=== PATIENT | female | born 1940 | race Caucasian/White ===

== ENCOUNTER 2017-02-18 08:00 | Outpatient (CLI) | payer MEDICARE, OTHER ==
[2017-02-18 13:34] LABS: BASOPHILS % (AUTO) 0.8 %; EOSINOPHILS # (AUTO) 0.2 10^3/uL (0.0-0.7); EOSINOPHILS % (AUTO) 4.3 %; HCT - HEMATOCRIT 37.4 % (37.0-47.0); HGB - HEMOGLOBIN 12.5 g/dL (12.0-16.0); LYMPHOCYTES # (AUTO) 1.5 10^3/uL (1.5-3.5); LYMPHOCYTES % (AUTO) 26.8 %; MEAN CORPUSCULAR HEMOGLOBIN 31.6 pg (27.0-31.0); MEAN CORPUSCULAR HGB CONC 33.4 g/dL (32.0-36.0); MEAN CORPUSCULAR VOLUME 94.5 fL (81.0-99.0); MEAN PLATELET VOLUME 8.2 fL (7.9-10.8); MONOCYTES # (AUTO) 0.5 10^3/uL (0.0-1.0); MONOCYTES % (AUTO) 9.2 %; NEUTROPHILS # (AUTO) 3.4 10^3/uL (1.5-6.6); NEUTROPHILS % (AUTO) 58.9 %; NUCLEATED RED BLOOD CELLS AUTO 0.1 /100WBC; RED BLOOD COUNT 3.96 10^6/uL (4.20-5.40); RED CELL DISTRIBUTION WIDTH 14.1 % (12.0-15.0); UNCORRECTED WHITE BLOOD COUNT 5.7 x10^3/uL; WHITE BLOOD COUNT 5.7 x10^3/uL (4.8-10.8)
[2017-02-18 13:45] LABS: ALBUMIN/GLOBULIN RATIO 1.4 (1.0-2.2); BILIRUBIN,TOTAL 0.6 mg/dL (0.2-1.0); BUN - BLOOD UREA NITROGEN 26 mg/dL (6-20); CALCIUM 9.5 mg/dL (8.5-10.3); CARBON DIOXIDE - CO2 23 mmol/L (21-32); CHLORIDE 110 mmol/L (101-111); CHOLESTEROL 177 mg/dL; GFR - MDRD 54 (>89); GLUCOSE 92 mg/dL (70-100); HDL CHOLESTEROL 59 mg/dL; LDL/HDL RATIO 1.7 (<4.4); POTASSIUM 4.2 mmol/L (3.5-5.0); SODIUM 140 mmol/L (135-145); TRIGLYCERIDES 102 mg/dL; VLDL CHOLESTEROL 20 mg/dL
== END 2017-02-18 08:01 | disposition home or self-care (01) ==
LOC: LAB.WCP 08:00
PROVIDERS: ATTEND Physician Assistant Medical
DX: E78.5 Hyperlipidemia, unspecified (principal)
CPT/HCPCS: 36415; 80053; 80061; 85025

== ENCOUNTER 2017-04-01 10:05 | Outpatient (CLI) | payer MEDICARE, OTHER | END 2017-04-01 10:06 | disposition home or self-care (01) | DX: Z12.31 Encounter for screening mammogram for malignant neoplasm of breast (principal) ==

== ENCOUNTER 2018-02-02 08:40 | Outpatient (CLI) | payer MEDICARE, OTHER ==
[2018-02-02 12:43] LABS: BASOPHILS % (AUTO) 0.8 %; EOSINOPHILS # (AUTO) 0.3 10^3/uL (0.0-0.7); EOSINOPHILS % (AUTO) 4.9 %; HGB - HEMOGLOBIN 12.7 g/dL (12.0-16.0); LYMPHOCYTES # (AUTO) 1.2 10^3/uL (1.5-3.5); LYMPHOCYTES % (AUTO) 23.4 %; MEAN CORPUSCULAR HEMOGLOBIN 31.6 pg (27.0-31.0); MEAN CORPUSCULAR HGB CONC 33.2 g/dL (32.0-36.0); MEAN CORPUSCULAR VOLUME 94.9 fL (81.0-99.0); MEAN PLATELET VOLUME 8.1 fL (7.9-10.8); MONOCYTES # (AUTO) 0.4 10^3/uL (0.0-1.0); MONOCYTES % (AUTO) 7.8 %; NEUTROPHILS # (AUTO) 3.4 10^3/uL (1.5-6.6); NEUTROPHILS % (AUTO) 63.1 %; PLT - PLATELET COUNT 243 10^3/uL (130-450); RED BLOOD COUNT 4.03 10^6/uL (4.20-5.40); WHITE BLOOD COUNT 5.3 x10^3/uL (4.8-10.8)
[2018-02-02 13:04] LABS: ALBUMIN/GLOBULIN RATIO 1.4 (1.0-2.2); ALKALINE PHOSPHATASE 57 IU/L (42-121); ALT ALANINE AMINOTRANSFERASE 20 IU/L (10-60); AST ASPARTATE AMINOTRANSFERASE 22 IU/L (10-42); BILIRUBIN,TOTAL 0.7 mg/dL (0.2-1.0); BUN - BLOOD UREA NITROGEN 26 mg/dL (6-20); CALCIUM 9.1 mg/dL (8.5-10.3); CARBON DIOXIDE - CO2 24 mmol/L (21-32); CHLORIDE 107 mmol/L (101-111); CHOL/HDL RATIO 3.3 (<4.4); CHOLESTEROL 177 mg/dL; CREATININE 0.9 mg/dL (0.4-1.0); GFR - MDRD 61 (>89); GLUCOSE 90 mg/dL (70-100); HDL CHOLESTEROL 53 mg/dL; LDL CHOLESTEROL,CALCULATED 105 mg/dL; SODIUM 137 mmol/L (135-145); TOTAL PROTEIN 6.9 g/dL (6.7-8.2); VLDL CHOLESTEROL 19 mg/dL
== END 2018-02-02 08:41 | disposition home or self-care (01) ==
LOC: LAB.WCP 08:40
PROVIDERS: ATTEND Physician Assistant Medical
DX: E78.5 Hyperlipidemia, unspecified (principal); K21.9 Gastro-esophageal reflux disease without esophagitis
CPT/HCPCS: 36415; 80053; 80061; 83721; 85025

== ENCOUNTER 2018-04-15 08:13 | Inpatient (IN) | payer MEDICARE, OTHER ==
--- NOTE | 2018-04-15 08:45 | ED Physician Documentation ---
History of Present Illness - Stated complaint Stated Complaint: NAUSEA/WEAKNESS - Chief complaint Chief Complaint: Abd Pain - Additonal information Additional information: hx from pt and PMD 77 f healthy no prior abd surgeries ill since March 31 she thought she might have food poisoning because she got ill after eating brisket from [employer] had NVD for several days that has subsided but still having sig abd pain, severe nausea, dec PO and occ diarrhea now with urinary freq as well seen PMD few tmes, rx zofran which helped but also caused constipation, has labs yesterday Review of Systems Constitutional: denies: Fever, Chills Cardiac: denies: Chest pain / pressure Respiratory: denies: Dyspnea GI: reports: Abdominal Pain, Nausea, Vomiting, Diarrhea : denies: Dysuria Neurologic: denies: Generalized weakness Endocrine: denies: Easy bruising / bleeding Immunocompromised: denies: Immunocompromised PD PAST MEDICAL HISTORY - Past Medical History Cardiovascular: Hypertension Musculoskeletal: Scoliosis - Past Surgical History Past Surgical History: Yes General: Colonoscopy HEENT: Cataracts, Tonsil/Adenoidectomy - Present Medications Home Medications: Ambulatory Orders Medication Instructions Recorded Confirmed Atorvastatin [Lipitor] 20 mg PO DAILY 02/15/16 02/18/16 Losartan [Cozaar] 100 mg PO DAILY 02/15/16 02/18/16 Betaxolol 0.25% Ophth Drops 1 drops OPTH BID 02/18/16 02/18/16 [Betoptic S 0.25% Ophth Drops] Biotin 1,000 mcg PO DAILY 02/18/16 02/18/16 Ca/D3/Mag#11/Zinc/[employer]/Zachariah/Bor 1 each PO BID 02/18/16 02/18/16 [Caltrate 600+D Plus Tablet] Cholecalciferol (Vitamin D3) 1,000 unit PO 02/18/16 [Vitamin D3] Dorzolamide 2% Ophth Drops 1 drops OPTH TID 02/18/16 02/18/16 [Trusopt 2% Ophth Drops] Fluticasone Propionate [Flovent 1 spray NS BID 02/18/16 02/18/16 Diskus] Ibuprofen 400 mg PO Q6HR PRN 02/18/16 02/18/16 Multivitamin [Theragran] 1 each PO DAILY 02/18/16 02/18/16 Ubidecarenone/Vitamin E Mixed 1 each PO DAILY 02/18/16 02/18/16 [Jxu87-Avb E 100 mg-10 Unit Sfg] - Allergies Allergies/Adverse Reactions: Allergies Allergy/AdvReac Type Severity Reaction Status Date / Time oxycodone HCl * Allergy Hallucinati Verified 04/15/18 08:22 [From OxyContin] ons brimonidine tartrate * AdvReac Unknown Verified 04/15/18 08:22 [From Alphagan P] lisinopril AdvReac Unknown Verified 04/15/18 08:22 timolol [Timolol] AdvReac Unknown Verified 04/15/18 08:22 - Social History Does the pt smoke?: No Smoking Status: Never smoker Does the pt drink ETOH?: Yes Does the pt have substance abuse?: No - Immunizations Immunizations are current?: Yes - POLST Patient has POLST: No PD ED PE NORMAL - Vitals Vital signs reviewed: Yes - Neck Neck: Supple, no meningeal sign - Cardiac Cardiac: RRR - Respiratory Respiratory: No respiratory distress, Clear bilaterally - Abdomen Abdomen: Soft, Other (mod TTP across lower abd, mild distension, no rebound, + guarding) - Derm Derm: Normal color - Neuro Neuro: Alert and oriented X 3 Results - Vitals Vitals: Vital Signs - 24 hr 04/15/18 04/15/18 04/15/18 08:17 10:04 11:33 Temperature 36.8 C 36.6 C Heart Rate 116 H 87 96 Respiratory 16 16 16 Rate Blood Pressure 123/62 131/57 H 130/54 L O2 Saturation 98 98 99 04/15/18 04/15/18 04/15/18 13:51 15:48 17:43 Temperature 36.2 C L 38.0 C H Heart Rate 92 89 95 Respiratory 15 18 15 Rate Blood Pressure 112/60 128/59 L 135/50 H O2 Saturation 100 98 100 Oxygen O2 Source Room air - Labs Labs: Laboratory Tests 04/15/18 04/15/18 04/15/18 08:44 08:44 09:22 WBC 18.0 H RBC 3.80 L Hgb 12.0 Hct 36.0 L MCV 94.6 MCH 31.5 H MCHC 33.2 RDW 13.7 Plt Count 557 H MPV 8.4 Neut # (Auto) Not Reportable Lymph # (Auto) Not Reportable Weber # (Auto) Not Reportable Eos # (Auto) Not Reportable Baso # (Auto) Not Reportable Absolute Nucleated RBC Not Reportable Total Counted 100 Band Neuts % (Manual) 39 H Abnorm Lymph % (Manual) 0 Metamyelocytes % 1 H Nucleated RBC % Not Reportable Neutrophils # (Manual) 15.7 H Lymphocytes # (Manual) 0.5 L Monocytes # (Manual) 1.6 H Eosinophils # (Manual) 0.0 Basophils # (Manual) 0.0 Differential Comment MANUAL DIFFERENTIAL WBC Morphology Platelet Estimate NORMAL (130-450,000) Platelet Morphology NORMAL APPEARANCE RBC Morph Micro Appear NORMAL APPEARANCE Sodium 135 Potassium 3.4 L Chloride 102 Carbon Dioxide 22 Anion Gap 11.0 BUN 17 Creatinine 1.2 H Estimated GFR (MDRD) 43 L Glucose 129 H Lactic Acid Calcium 9.5 Total Bilirubin 0.8 AST 22 ALT 28 Alkaline Phosphatase 75 Total Protein 7.3 Albumin 3.2 Globulin 4.1 Albumin/Globulin Ratio 0.8 L Lipase 27 Urine Color YELLOW Urine Clarity CLEAR Urine pH 5.5 Ur Specific Leland <=1.005 Urine Protein NEGATIVE Urine Glucose (UA) NEGATIVE Urine Ketones NEGATIVE Urine Occult Blood NEGATIVE Urine Nitrite NEGATIVE Urine Bilirubin NEGATIVE Urine Urobilinogen 0.2 (NORMAL) Ur Leukocyte Esterase NEGATIVE Ur Microscopic Review NOT INDICATED Urine Culture Comments NOT INDICATED 04/15/18 04/15/18 11:08 17:00 WBC 14.9 H RBC 3.49 L Hgb 11.0 L Hct 32.6 L MCV 93.3 MCH 31.5 H MCHC 33.8 RDW 13.6 Plt Count 534 H MPV 7.8 L Neut # (Auto) MEDICAL ASSISTANT CARDIOLOGY Lymph # (Auto) MEDICAL ASSISTANT CARDIOLOGY Weber # (Auto) MEDICAL ASSISTANT CARDIOLOGY Eos # (Auto) MEDICAL ASSISTANT CARDIOLOGY Baso # (Auto) MEDICAL ASSISTANT CARDIOLOGY Absolute Nucleated RBC MEDICAL ASSISTANT CARDIOLOGY Total Counted 100 Band Neuts % (Manual) 36 H Abnorm Lymph % (Manual) 0 Metamyelocytes % Nucleated RBC % MEDICAL ASSISTANT CARDIOLOGY Neutrophils # (Manual) 13.0 H Lymphocytes # (Manual) 1.0 L Monocytes # (Manual) 0.9 Eosinophils # (Manual) 0.0 Basophils # (Manual) 0.0 Differential Comment MANUAL DIFFERENTIAL WBC Morphology 1+ DOHLE BODIES Platelet Estimate INCREASED (>450,000) Platelet Morphology NORMAL APPEARANCE RBC Morph Micro Appear NORMAL APPEARANCE Sodium Potassium Chloride Carbon Dioxide Anion Gap BUN Creatinine Estimated GFR (MDRD) Glucose Lactic Acid 1.3 Calcium Total Bilirubin AST ALT Alkaline Phosphatase Total Protein Albumin Globulin Albumin/Globulin Ratio Lipase Urine Color Urine Clarity Urine pH Ur Specific Leland Urine Protein Urine Glucose (UA) Urine Ketones Urine Occult Blood Urine Nitrite Urine Bilirubin Urine Urobilinogen Ur Leukocyte Esterase Ur Microscopic Review Urine Culture Comments - Rads (name of study) abd sono Radiology: See rad report (BD sludge no acute susana) CT AP Radiology: See rad report (stool retention, distended bladder and hydro, gallstones, HH, diverticulosis s -itis) PD MEDICAL DECISION MAKING - ED course ED course: DREA Tenorio called - pt had labs through [facility] yesterday -WBC 16.7, creat 1.5 ( not new), nl lipase and LFTs - PMD was going to get a CT scan abn GB on CT and WBC 18 with 39% bands but not focal RUQ TTP gave zosyn after lactate and blood cx ordered sono (sludge only) magana for diustended bladder and enema for stool retention with resultant BP req surgical consult at [address] Addison came to ED to see pt between OR cases but she was in sono pt is elderly tachycardic leukocytosis with a sig bandemia - if surgery does not feel she has a surgival abd, will req medicine to obs her as I believe there is a significant underlying infection somewhere after magana to drain bladder and enema with resultant large BM pt feeling much better when surgery returned to eval pt at 1625 her HR was normal and her abd was soft and non tender without pain meds (she refused the morphine) - Dr Addison does not feel pt needs surgery he feels she can be dced home I am concerned about the WBC 18K and 39% bands and wanted to at least admit to obs pt wants t go home we discussed and agreed to repeat the CBC - if WBC and band improved may consider dc with very close fup - I am not working tomorrow but Dr Addison is medicare contact specialist so pt could come to the ER and he could consult again or to his office for a 24 hr recheck - only if CBC improved CBC not sig improved, still 36% bands - and now pt febrile non surgical at this time (see Dr Addison' note) but d/w hospitalist at 1815 and she will admit pt for further observation and evaluation to see how symptoms progress and declare - Sepsis Event Vital Signs: Vital Signs - 24 hr 04/15/18 04/15/18 04/15/18 08:17 10:04 11:33 Temperature 36.8 C 36.6 C Heart Rate 116 H 87 96 Respiratory 16 16 16 Rate Blood Pressure 123/62 131/57 H 130/54 L O2 Saturation 98 98 99 04/15/18 04/15/18 04/15/18 13:51 15:48 17:43 Temperature 36.2 C L 38.0 C H Heart Rate 92 89 95 Respiratory 15 18 15 Rate Blood Pressure 112/60 128/59 L 135/50 H O2 Saturation 100 98 100 Oxygen O2 Source Room air Departure - Departure Disposition: [facility] DC/Xfer Clinical Impression: Bandemia Leukocytosis Qualifiers: Leukocytosis type: bandemia Qualified Code(s): D72.825 - Bandemia Abdominal pain Qualifiers: Abdominal location: lower abdomen, unspecified Qualified Code(s): R10.30 - Lower abdominal pain, unspecified Fever Qualifiers: Fever type: unspecified Qualified Code(s): R50.9 - Fever, unspecified Condition: Fair
[2018-04-15 09:11] LABS: BASOPHILS % (AUTO) 0.4 %; EOSINOPHILS % (AUTO) 0.7 %; LYMPHOCYTES % (AUTO) 3.2 %; MEAN CORPUSCULAR HEMOGLOBIN 31.5 pg (27.0-31.0); MEAN CORPUSCULAR HGB CONC 33.2 g/dL (32.0-36.0); MEAN CORPUSCULAR VOLUME 94.6 fL (81.0-99.0); MEAN PLATELET VOLUME 8.4 fL (7.9-10.8); MONOCYTES % (AUTO) 8.1 %; NEUTROPHILS % (AUTO) 87.6 %; PLT - PLATELET COUNT 557 10^3/uL (130-450); RED CELL DISTRIBUTION WIDTH 13.7 % (12.0-15.0)
[2018-04-15 09:12] LABS: ABNORMAL LYMPHS % (MANUAL) 0 %
[2018-04-15 09:32] LABS: ALBUMIN 3.2 g/dL (3.2-5.5); ALBUMIN/GLOBULIN RATIO 0.8 (1.0-2.2); BILIRUBIN,TOTAL 0.8 mg/dL (0.2-1.0); CALCIUM 9.5 mg/dL (8.5-10.3); CREATININE 1.2 mg/dL (0.4-1.0); TOTAL PROTEIN 7.3 g/dL (6.7-8.2)
[2018-04-15 09:34] LABS: BAND NEUTROPHILS % (MANUAL) 39 %; LYMPHOCYTES # (MANUAL) 0.5 10^3/uL (1.5-3.5); LYMPHOCYTES % (MANUAL) 3 %; METAMYELOCYTES % (MANUAL) 1 %; MONOCYTES # (MANUAL) 1.6 10^3/uL (0.0-1.0); NEUTROPHILS # (MANUAL) 15.7 10^3/uL (1.5-6.6); NEUTROPHILS % (MANUAL) 48 %
[2018-04-15 09:35] LABS: DIFFERENTIAL COMMENT MANUAL DIFFERENTIAL; PLATELET ESTIMATE, MANUAL NORMAL (130-450,000) (NORMAL); PLATELET MORPHOLOGY NORMAL APPEARANCE (NORMAL); RBC MORPHOLOGY (MULTIPLE) NORMAL APPEARANCE (NORMAL)
[2018-04-15 09:53] LABS: BILIRUBIN,URINE NEGATIVE (NEGATIVE); GLUCOSE, URINE (UA) NEGATIVE (NEGATIVE); KETONES,URINE (UA) NEGATIVE (NEGATIVE); LEUKOCYTE ESTERASE, URINE NEGATIVE (NEGATIVE); NITRITE,URINE NEGATIVE (NEGATIVE); OCCULT BLOOD,URINE NEGATIVE (NEGATIVE); PH,URINE 5.5 PH (5.0-7.5); PROTEIN,URINE NEGATIVE (NEGATIVE); UROBILINOGEN,URINE 0.2 (NORMAL) E.U./dL (NORMAL)
[2018-04-15 09:57] LABS: CLARITY,URINE CLEAR (CLEAR)
--- NOTE | 2018-04-15 10:35 | CT Report ---
Procedure Date: 04/15/2018 Accession Number: [id number] / [id number] Procedure: CT - Abdomen/Pelvis W/O CPT Code: FULL RESULT: EXAM: CT ABDOMEN AND PELVIS EXAM DATE: 04/15/2018 09:36 AM. CLINICAL HISTORY: Abd pain. COMPARISONS: None. TECHNIQUE: Routine helical CT imaging was performed through the abdomen and pelvis. IV contrast: None. Enteric contrast: No. Reconstructions: Coronal and sagittal. In accordance with CT protocol optimization, one or more of the following dose reduction techniques were utilized for this exam: automated exposure control, adjustment of mA and/or KV based on patient size, or use of iterative reconstructive technique. FINDINGS: Lung Bases: Moderate size hiatal hernia Liver: Normal. No masses. Gallbladder/Bile Ducts: Possible gallstones Spleen: Normal. 8 mm calcified splenic artery aneurysm Pancreas: Normal. Adrenal Glands: Normal. Kidneys: Mild bilateral hydronephrosis. Bladder is distended. Peritoneal Cavity/Bowel: Diverticulosis. No significant free fluid in the abdomen. No retroperitoneal adenopathy Markedly distended fecal filled rectum. Normal appendix. Pelvic Organs: Bladder is distended. Pelvic organs otherwise unremarkable. Vasculature: No aneurysms or other significant abnormality. Bones: Scoliosis, multilevel spondylolisthesis, congenital or postsurgical fusion Other: None. IMPRESSION: 1. Possible cholelithiasis. 2. Mild bilateral hydroureteronephrosis. Bladder is markedly distended 3. Fecal filled dilated rectum possible impaction. 4. Diverticulosis. 5. Moderate-sized hiatal hernia RADIA
[2018-04-15] MEDS ORDERED: PIPERACILLIN/TAZOBACTAM 3.375 GM in SODIUM CHLORIDE 0.9% MINIBAG 100 ML IV STA (10:51)
[2018-04-15] MEDS ORDERED: MORPHINE 2 MG/ML SYRINGE IVP STA (11:23)
--- NOTE | 2018-04-15 13:23 | Ultrasound Report ---
Procedure Date: 04/15/2018 Accession Number: [id number] / [id number] Procedure: US - Abdomen Limited CPT Code: FULL RESULT: EXAM: Abdomen Limited DATE: 04/15/2018 1:14 PM CLINICAL HISTORY: abd pain abn GB on CT COMPARISON: None. TECHNIQUE: Real-time scanning was performed with static images obtained. FINDINGS: Liver: Normal in size and echotexture. cm. Main portal vein flow: Hepatopetal. Gallbladder: The gallbladder contains sludge but demonstrates normal wall thickness and no pericholecystic fluid and no gallbladder wall hyperemia to suggest cholecystitis. While the patient did receive pain medication which precludes formal evaluation of the sonographic Mendieta's sign, no tenderness was appreciated over the gallbladder. Biliary System: Common bile duct measures 4 mm. No intrahepatic or extrahepatic ductal dilatation. Pancreas: Visualized portion is unremarkable. Kidneys: Right: 9.5 cm longitudinally. Normal. No contour-deforming mass, stones, or hydronephrosis. IMPRESSION: Gallbladder sludge without sonographic findings to suggest cholecystitis. RADIA
[2018-04-15 17:04] LABS: BASOPHILS % (AUTO) 0.3 %; LYMPHOCYTES % (AUTO) 4.7 %; MEAN CORPUSCULAR HEMOGLOBIN 31.5 pg (27.0-31.0); MEAN CORPUSCULAR HGB CONC 33.8 g/dL (32.0-36.0); MEAN CORPUSCULAR VOLUME 93.3 fL (81.0-99.0); MEAN PLATELET VOLUME 7.8 fL (7.9-10.8); MONOCYTES % (AUTO) 8.6 %; NEUTROPHILS % (AUTO) 86.4 %; PLT - PLATELET COUNT 534 10^3/uL (130-450); RED BLOOD COUNT 3.49 10^6/uL (4.20-5.40); RED CELL DISTRIBUTION WIDTH 13.6 % (12.0-15.0); WHITE BLOOD COUNT 14.9 x10^3/uL (4.8-10.8)
[2018-04-15 17:42] LABS: ABNORMAL LYMPHS % (MANUAL) 0 %
[2018-04-15 18:00] LABS: BAND NEUTROPHILS % (MANUAL) 36 %; DIFFERENTIAL COMMENT MANUAL DIFFERENTIAL; LYMPHOCYTES % (MANUAL) 7 %; MONOCYTES # (MANUAL) 0.9 10^3/uL (0.0-1.0); NEUTROPHILS % (MANUAL) 51 %; PLATELET ESTIMATE, MANUAL INCREASED (>450,000) (NORMAL); PLATELET MORPHOLOGY NORMAL APPEARANCE (NORMAL); RBC MORPHOLOGY (MULTIPLE) NORMAL APPEARANCE (NORMAL)
[2018-04-15] MEDS ORDERED: ACETAMINOPHEN 325 MG TABLET PO STA (18:27)
[2018-04-15] MEDS ORDERED: SODIUM CHLORIDE FLUSH 0.9% 10 ML SYRINGE IVP PRN (18:41)
--- NOTE | 2018-04-15 20:37 | HISTORY & PHYSICAL EXAMINATION ---
Chief Complaint - Chief Complaint Chief Complaint: Abdominal pain History of Present Illness - Admitted From Admitted From:: Home - History Obtained From History obtained from: Patient - History of Present Illness HPI Comment/Other: Mrs. Zoey Middleton is a very pleasant 77-year-old female who has a history of having eaten "bad food" on March 31 which left her with nausea and vomiting for 4 days. Following this the patient had diarrhea for several days. She went to see her primary care physician provider and was placed on clear liquid diet which was advanced to a brat diet however the patient continued to have abdominal discomfort. She has had anorexia with decreased oral intake of both food and fluids since that time has had multiple episodes of severe colicky abdominal pain which has come and gone. Today the pain came back and the patient decided to come to the emergency room rather than following up with her primary care as she has already seen her primary care a couple of times for these complaints. CAT scan of the abdomen was essentially negative as was an ultrasound however it was noted that the patient had a large amount of fluid in her bladder and a large amount of stool. She had a Faith catheter placed and an enema in which a large amount of stool was evacuated and the patient says she feels much better since that time. She denies any pain or any other new complaints. History - Past Medical History Cardiovascular: reports: Hypertension, High cholesterol HEENT: reports: Glaucoma Musculoskeletal: reports: Scoliosis - Past Surgical History General: reports: Colonoscopy /BOX STAMPER: reports: Other (Uterine surgery) Neuro: reports: Other (Lumbar laminectomy) HEENT: reports: Cataracts, Tonsil/Adenoidectomy - Family & Social History Family History: Mother: , Father: , COPD/Emphysema, Brother: Alive and Well, CAD Family History Comment/Other: Patient's mother at age 92 of natural causes. Patient's father at age 86 with complications of emphysema. There is a brother who has coronary artery disease. There is no known history of CVA, diabetes mellitus, or cancer in the family. Living arrangement: At home Living Situation: With spouse/s.o. - Substance History Use: Uses substance without health or social issues: Alcohol Abuse: Recurrent use of substance despite neg consequences: NONE Dependence: Experiences withdrawal or developed tolerances: NONE - POLST Patient has POLST: No POLST Status: Full Code Meds/Allgy - Home Medications Home Medications: Ambulatory Orders Medication Instructions Recorded Confirmed Atorvastatin [Lipitor] 20 mg PO QPM 02/15/16 04/15/18 Losartan [Cozaar] 100 mg PO DAILY 02/15/16 04/15/18 Betaxolol 0.25% Ophth Drops 1 drops EACHEYE BID 02/18/16 04/15/18 [Betoptic S 0.25% Ophth Drops] Brinzolamide 1% Ophth Drops [Azopt 1 drops RIGHTEYE BID 04/15/18 04/15/18 1% Ophth Drops] - Allergies Allergies/Adverse Reactions: Allergies Allergy/AdvReac Type Severity Reaction Status Date / Time oxycodone HCl * Allergy Hallucinati Verified 04/15/18 08:22 [From OxyContin] ons brimonidine tartrate * AdvReac Unknown Verified 04/15/18 08:22 [From Alphagan P] lisinopril AdvReac Unknown Verified 04/15/18 08:22 timolol [Timolol] AdvReac Unknown Verified 04/15/18 08:22 Review of Systems - Constitutional Constitutional: denies: Fatigue, Fever, Chills, Malaise - Eyes Eyes: denies: Pain, Irritation, Amaurosis, Blurred vision - Ears, Nose & Throat Ears, Nose & Throat: denies: Ear pain, Hearing loss, Tinnitus, Vertigo, Nasal pain, Nosebleeds - Cardiovascular Cariovascular: denies: Irregular heart rate, Palpitations, Chest pain, Edema - Respiratory Respiratory: denies: Cough, Sputum production, Wheezing, Snoring - Gastrointestinal Gastrointestinal: reports: Abdominal pain, Abdominal distention, Diarrhea, Change in bowel habits, Nausea. denies: Constipation, Rectal bleeding, Black stools, Bloody stools, Vomiting - Genitourinary Genitourinary: denies: Dysuria, Frequency, Urgency, Hematuria - Musculoskeletal Musculoskeletal: denies: Muscle pain, Back pain, Muscle aches, Stiffness - Integumentary Integumentary: denies: Rash, Pruritis, Lesions, Dryness - Neurological Neurological: denies: General weakness, Focal weakness, Headache, Dizziness - Psychiatric Psychiatric: denies: Depression, Anxiety, Suicidal, Hallucinations - Endocrine Endocrine: denies: Polyuria, Polydypsia, Polyphagia - Hematologic/Lymphatic Hematologic/Lymphatic: denies: Anemia, Bruising, Petechiae, Lymphadenopathy - All Other Systems All Other Systems: reports: Reviewed and negative Exam - Vital Signs Reviewed Vital Signs: Yes Vital Signs: Vital Signs x48h Temp Pulse Resp BP Pulse Ox 04/15/18 19:25 37.2 C 96 18 128/56 L 100 - Physical Exam General Appearance: positive: No acute distress, Alert Eyes Bilateral: positive: Normal inspection, PERRL, EOMI, No lid inflammation, Conjunctivae nml, No scleral icterus ENT: positive: ENT inspection nml, Pharynx nml, No signs of dehydration Neck: positive: Nml inspection, Thyroid nml, No JVD, Trachea midline. negative : Thyromegaly Respiratory: positive: Chest non-tender, No respiratory distress, Breath sounds nml. negative: Wheezes, Rales, Rhonchi Cardiovascular: positive: Regular rate & rhythm, No murmur, No gallop Peripheral Pulses: positive: 1+ Abdomen: positive: Non-tender, No organomegaly, Nml bowel sounds, No distention. negative: Guarding, Rebound Back: positive: Nml inspection. negative: CVA tenderness (R), CVA tenderness (L ) Skin: positive: Color nml, No rash, Warm, Dry. negative: Cyanosis Extremities: positive: Non-tender, Full ROM, Nml appearance, No pedal edema Neurologic/Psychiatric: positive: Oriented x3, CN's nml (2-12), Motor nml, Sensation nml, Mood/affect nml Conclusion/Plan - Problem List (1) Abdominal pain Conclusion/Plan: At this time the patient's abdominal pain is resolved, and has been since she had her enema and Faith catheter placed. The Faith catheter has since been removed and the patient is voiding. Her abdomen is soft, nontender, she is not exhibiting any rebounding or guarding. Will monitor her overnight and if she remains comfortable we will discharge her tomorrow. Qualifiers: Abdominal location: lower abdomen, unspecified Qualified Code(s): R10.30 - Lower abdominal pain, unspecified (2) Hypertension Conclusion/Plan: Well-managed, the patient's diastolics are in the 50s but otherwise her blood pressure is excellent. We will continue on her home dosing of losartan. (3) Glaucoma Conclusion/Plan: The patient has a history of glaucoma however notes that her newest editor thinks that the signs of glaucoma are minimal and she will be tapering off of these under his direction in the future. While she is inpatient we will continue on her home dosing of betataxolol and brinzolamide. (4) Hyperlipidemia Conclusion/Plan: Presumably well-managed, we will continue the patient on her home dosing of Lipitor. - Lab Results Lab results reviewed: Yes Fish Bones: 04/15/18 17:00 04/15/18 08:44 - Diagnostic Imaging Results Diagnostic Imaging Results: positive: Final report reviewed Diagnostic Imaging Results Comments: EXAM: CT ABDOMEN AND PELVIS EXAM DATE: 04/15/2018 09:36 AM. CLINICAL HISTORY: Abd pain. COMPARISONS: None. TECHNIQUE: Routine helical CT imaging was performed through the abdomen and pelvis. IV contrast: None. Enteric contrast: No. Reconstructions: Coronal and sagittal. In accordance with CT protocol optimization, one or more of the following dose reduction techniques were utilized for this exam: automated exposure control, adjustment of mA and/or KV based on patient size, or use of iterative reconstructive technique. FINDINGS: Lung Bases: Moderate size hiatal hernia Liver: Normal. No masses. Gallbladder/Bile Ducts: Possible gallstones Spleen: Normal. 8 mm calcified splenic artery aneurysm Pancreas: Normal. Adrenal Glands: Normal. Kidneys: Mild bilateral hydronephrosis. Bladder is distended. Peritoneal Cavity/Bowel: Diverticulosis. No significant free fluid in the abdomen. No retroperitoneal adenopathy Markedly distended fecal filled rectum. Normal appendix. Pelvic Organs: Bladder is distended. Pelvic organs otherwise unremarkable. Vasculature: No aneurysms or other significant abnormality. Bones: Scoliosis, multilevel spondylolisthesis, congenital or postsurgical fusion Other: None. IMPRESSION: 1. Possible cholelithiasis. 2. Mild bilateral hydroureteronephrosis. Bladder is markedly distended 3. Fecal filled dilated rectum possible impaction. 4. Diverticulosis. 5. Moderate-sized hiatal hernia EXAM: Abdomen Limited DATE: 04/15/2018 1:14 PM CLINICAL HISTORY: abd pain abn GB on CT COMPARISON: None. TECHNIQUE: Real-time scanning was performed with static images obtained. FINDINGS: Liver: Normal in size and echotexture. cm. Main portal vein flow: Hepatopetal. Gallbladder: The gallbladder contains sludge but demonstrates normal wall thickness and no pericholecystic fluid and no gallbladder wall hyperemia to suggest cholecystitis. While the patient did receive pain medication which precludes formal evaluation of the sonographic Mendieta's sign, no tenderness was appreciated over the gallbladder. Biliary System: Common bile duct measures 4 mm. No intrahepatic or extrahepatic ductal dilatation. Pancreas: Visualized portion is unremarkable. Kidneys: Right: 9.5 cm longitudinally. Normal. No contour-deforming mass, stones, or hydronephrosis. IMPRESSION: Gallbladder sludge without sonographic findings to suggest cholecystitis. Core Measures - Anticipated LOS I expect patient to be DC'd or transferred within 96 hours.: Yes - DVT/VTE - Prophylaxis VTE/DVT Device ordered at admit?: Yes
[2018-04-15] MEDS: ATORVASTATIN 10 MG TABLET PO SCH (21:30)
[2018-04-15] MEDS: BETAXOLOL 0.25% OPHTH DROPS EACHEYE SCH (22:28)
[2018-04-15] MEDS: BRINZOLAMIDE 1% OPHTH DROPS RIGHTEYE SCH (22:29)
[2018-04-16] MEDS ORDERED: ONDANSETRON ODT 4 MG TABLET TL PRN (00:55)
[2018-04-16] MEDS: SODIUM CHLORIDE FLUSH 0.9% 10 ML SYRINGE IVP SCH ×4 (01:18→23:46)
[2018-04-16 05:36] LABS: BASOPHILS % (AUTO) 0.2 %; EOSINOPHILS # (AUTO) 0.1 10^3/uL (0.0-0.7); EOSINOPHILS % (AUTO) 0.4 %; HGB - HEMOGLOBIN 10.8 g/dL (12.0-16.0); LYMPHOCYTES # (AUTO) 0.7 10^3/uL (1.5-3.5); LYMPHOCYTES % (AUTO) 5.6 %; MEAN CORPUSCULAR HEMOGLOBIN 31.6 pg (27.0-31.0); MEAN CORPUSCULAR HGB CONC 33.8 g/dL (32.0-36.0); MEAN CORPUSCULAR VOLUME 93.4 fL (81.0-99.0); MEAN PLATELET VOLUME 7.9 fL (7.9-10.8); MONOCYTES # (AUTO) 1.1 10^3/uL (0.0-1.0); MONOCYTES % (AUTO) 8.9 %; NEUTROPHILS # (AUTO) 10.8 10^3/uL (1.5-6.6); NEUTROPHILS % (AUTO) 84.9 %; PLT - PLATELET COUNT 479 10^3/uL (130-450); RED BLOOD COUNT 3.41 10^6/uL (4.20-5.40); RED CELL DISTRIBUTION WIDTH 13.2 % (12.0-15.0); WHITE BLOOD COUNT 12.7 x10^3/uL (4.8-10.8)
[2018-04-16 05:49] LABS: ALBUMIN 2.6 g/dL (3.2-5.5); ALBUMIN/GLOBULIN RATIO 0.7 (1.0-2.2); CALCIUM 8.7 mg/dL (8.5-10.3); TOTAL PROTEIN 6.2 g/dL (6.7-8.2)
[2018-04-16] MEDS: BETAXOLOL 0.25% OPHTH DROPS EACHEYE SCH ×2 (09:14→21:39)
[2018-04-16] MEDS: POLYETHYLENE GLYCOL 3350 17 GM PACKET PO SCH (09:14)
[2018-04-16] MEDS: BRINZOLAMIDE 1% OPHTH DROPS RIGHTEYE SCH ×2 (09:14→21:39)
[2018-04-16] MEDS ORDERED: PIPERACILLIN/TAZOBACTAM 3.375 GM in SODIUM CHLORIDE 0.9% MINIBAG 100 ML IV SCH (13:00)
[2018-04-16] MEDS: NS W/20 MEQ KCL 1,000 ML IV SCH (14:03)
[2018-04-16] MEDS: PIPERACILLIN/TAZOBACTAM 3.375 GM in SODIUM CHLORIDE 0.9% MINIBAG 100 ML IV SCH (17:09)
--- NOTE | 2018-04-16 19:07 | PROVIDER PROGRESS NOTE ---
Subjective - Prog Note Date Prog Note Date: 04/16/18 Prog Note Time: 09:00 - Subjective Pt reports feeling: No change Subjective: Zoey states "I just don't feel right". She denies SOB, chest pain, vomiting, dizziness or a new cough. Current Medications - Current Medications Current Medications: Active Medications Atorvastatin Calcium (Lipitor) 20 mg PO QPM [facility] Last Admin: 04/15/18 21:30 Dose: Not Given Potassium Chloride/Sodium Chloride (Normal Saline 0.9% W/20 Meq Kcl) 1,000 mls @ 83.333 mls/hr IV .Q12H [facility] Last Admin: 04/16/18 14:03 Dose: 83.333 mls/hr Piperacillin Sod/Tazobactam (Sod 3.375 gm/ Sodium Chloride) 100 mls @ 25 mls/ hr IV Q8H [facility] Last Admin: 04/16/18 17:09 Dose: 25 mls/hr Ondansetron HCl (Zofran Odt) 4 mg TL Q4HR PRN PRN Reason: Nausea / Vomiting Last Admin: 04/16/18 01:51 Dose: 4 mg Betaxolol 0.25% (Ophth Drops) 1 each EACHEYE BID [facility] Last Admin: 04/16/18 09:14 Dose: 1 each Brinzolamide 1% (Ophth Drops) 1 each RIGHTEYE BID [facility] Last Admin: 04/16/18 09:14 Dose: 1 each Polyethylene Glycol (Miralax) 17 gm PO DAILY [facility] Last Admin: 04/16/18 09:14 Dose: Not Given Sodium Chloride (Normal Saline Flush 0.9%) 10 ml IVP PRN PRN PRN Reason: NEEDED PER PROVIDER ORDERS Sodium Chloride (Normal Saline Flush 0.9%) 10 ml IVP 0100,0900,1700 [facility] Last Admin: 04/16/18 17:09 Dose: 10 ml Atorvastatin [Lipitor] 20 mg PO QPM 02/15/16 Losartan [Cozaar] 100 mg PO DAILY 02/15/16 Betaxolol 0.25% Ophth Drops [Betoptic S 0.25% Ophth Drops] 1 drops EACHEYE BID 02/18/16 Brinzolamide 1% Ophth Drops [Azopt 1% Ophth Drops] 1 drops RIGHTEYE BID Objective - Vital Signs/Intake & Output Reviewed Vital Signs: Yes Vital Signs: Vital Signs x48h Temp Pulse Resp BP Pulse Ox 04/16/18 15:40 36.6 C 90 18 137/53 H 95 04/16/18 11:55 36.6 C 92 18 119/56 L 99 Intake & Output: Intake & Output 04/13/18 04/14/18 04/15/18 04/16/18 23:59 23:59 23:59 23:59 Intake Total 240 1540 Output Total 500 Balance 240 1040 - Objective General Appearance: positive: Alert, Moderate distress Eyes Bilateral: positive: Normal inspection Eyes: OU Abnormal pupil ENT: positive: ENT inspection nml, Pharynx nml, Pharyngeal erythema, Dry mucous membranes Neck: positive: Nml inspection, Thyroid nml, No JVD, Lymphadenopathy (R), Lymphadenopathy (L) Respiratory: positive: Chest non-tender, No respiratory distress, Breath sounds nml Cardiovascular: positive: Regular rate & rhythm, No gallop, Systolic murmur, Decreased pulse(s) Peripheral Pulses: 1+ Dorsalis pedis (R), 1+ Dorsalis pedis (L), 2+ Radial (R), 2+ Radial (L) Abdomen: positive: Guarding, Abnml bowel sounds (hypo active, tenderness in RUQ) Back: positive: Nml inspection Skin: positive: No rash, Warm, Dry Extremities: positive: Non-tender, Full ROM, Pedal edema (chronic) Neurologic/Psychiatric: positive: Oriented x3, CN's nml (2-12), Motor nml, Sensation nml, Weakness, Depressed mood/affect Reflexes: Bicep (R): 2+, Bicep (L): 2+ - Lab Results Fish Bones: 04/17/18 05:59 04/17/18 05:59 Other Labs: Lab Results x24hrs 04/16/18 04/16/18 Range/Units 05:25 05:25 WBC 12.7 H (4.8-10.8) x10^3/uL RBC 3.41 L (4.20-5.40) 10^6/uL Hgb 10.8 L (12.0-16.0) g/dL Hct 31.9 L (37.0-47.0) % MCV 93.4 (81.0-99.0) fL MCH 31.6 H (27.0-31.0) pg MCHC 33.8 (32.0-36.0) g/dL RDW 13.2 (12.0-15.0) % Plt Count 479 H (130-450) 10^3/uL MPV 7.9 (7.9-10.8) fL Neut # (Auto) 10.8 H (1.5-6.6) 10^3/uL Lymph # (Auto) 0.7 L (1.5-3.5) 10^3/uL [place] # (Auto) 1.1 H (0.0-1.0) 10^3/uL Eos # (Auto) 0.1 (0.0-0.7) 10^3/uL Baso # (Auto) 0.0 (0.0-0.1) 10^3/uL Absolute Nucleated RBC 0.00 x10^3/uL Nucleated RBC % 0.0 /100WBC Sodium 140 (135-145) mmol/L Potassium 3.1 L (3.5-5.0) mmol/L Chloride 106 (101-111) mmol/L Carbon Dioxide 22 (21-32) mmol/L Anion Gap 12.0 (6-13) BUN 13 (6-20) mg/dL Creatinine 1.0 (0.4-1.0) mg/dL Estimated GFR (MDRD) 54 L (>89) Glucose 95 (70-100) mg/dL Calcium 8.7 (8.5-10.3) mg/dL Total Bilirubin 1.0 (0.2-1.0) mg/dL AST 21 (10-42) IU/L ALT 26 (10-60) IU/L Alkaline Phosphatase 63 (42-121) IU/L Total Protein 6.2 L (6.7-8.2) g/dL Albumin 2.6 L (3.2-5.5) g/dL Globulin 3.6 (2.1-4.2) g/dL Albumin/Globulin Ratio 0.7 L (1.0-2.2) - Diagnostic Imaging Diagnostic Imaging Results: positive: Prelim report reviewed, Final report reviewed ABX Reporting Has patient been on IV antibiotics over the past 48 hours?: Yes Assessment/Plan - Problem List (1) Abdominal pain Impression: The patient admits to right upper abdominal discomfort upon exam. She states that she still feels "out of sorts". She states that she has no urgency or sensation to urinate, and can only go a few dribbles. General surgery was contacted and after a review of imaging, concluded that no surgery is necessary. Plan: Continue to monitor and consider a magana cath is the urinary retention continues. Qualifiers: Abdominal location: lower abdomen, unspecified Qualified Code(s): R10.30 - Lower abdominal pain, unspecified (2) Fever Impression: Temp max was 38.0 shortly after arriving on the nursing unit, and the patient has been afebrile since that time. In addition, the patient has a continued elevated WBC count. Plan: Continue to monitor vital signs. Qualifiers: Fever type: unspecified Qualified Code(s): R50.9 - Fever, unspecified (3) Hyperlipidemia Impression: The patient is prescribed a statin out patient, which is continued. She is thought to have a good functioning liver. Plan: (4) Hypertension Impression: The patient generally has HTN, and is prescribed Losartan 100 mg PO daily, but has not needed this medication since admission. Plan: Continue to hold this med and monitor VS. (5) Leukocytosis Impression: The patient had an elevated WBC count upon admission at 18, with predominantly bands and today the WBC is slightly lower at 14. Plan: The source of infection is still not apparent. A full oral exam was completed and shows no evidence of infection. Qualifiers: Leukocytosis type: bandemia Qualified Code(s): D72.825 - Bandemia
[2018-04-16] MEDS: SACCHAROMYCES BOULARDII 250 MG CAPSULE PO SCH (21:39)
[2018-04-16] MEDS: ATORVASTATIN 10 MG TABLET PO SCH ×2 (21:39→21:42)
--- NOTE | 2018-04-16 22:56 | CONSULTATION NOTE ---
Referring Provider Name of Referring Provider:: Dr. Mariela Price Consult Date: 04/15/18 Chief Complaint - Chief Complaint Chief Complaint: Elevated WBC with bandemia in asymptomatic 77 year old female History of Present Illness - Admitted From Admitted From:: [facility] ED - History Obtained From Records Reviewed: Yes History obtained from: Patient and Exam Limitations: None - History of Present Illness HPI Comment/Other: Dr. Mariela Price asked that I see this very pleasant 77-year-old female after the patient presented to the emergency department with abdominal pain and an elevated white blood cell count with a left shift (marked bandemia). The patient's problems started on March 31 after she had a meal at [employer]. The patient states that she thought she had food poisoning and subsequent to this had quite a bit of diarrhea as well as some nausea and some vomiting. Because of the persistent diarrhea she took Imodium. She initially stated to Dr. Price that she thought the Zofran constipated her but in fact now that she is speaking to me she thinks it was the Imodium. Following taking the Imodium she stopped having bowel movements altogether. Of note she was given Zofran for some nausea and vomiting. Additionally, she is having difficulty urinating. She has not had any unexpected weight loss, night sweats, or any "B" symptoms. History - Past Medical History Cardiovascular: reports: Hypertension, High cholesterol Respiratory: reports: None Endocrine/Autoimmune: reports: None : reports: None HEENT: reports: Glaucoma Psych: reports: None Musculoskeletal: reports: Scoliosis Derm: reports: None - Past Surgical History General: reports: Colonoscopy /[employer]: reports: Other (Uterine surgery) Neuro: reports: Other (Lumbar laminectomy) HEENT: reports: Cataracts, Tonsil/Adenoidectomy - Family & Social History Family History: Mother: , Father: , COPD/Emphysema, Brother: Alive and Well, CAD Family History Comment/Other: Patient's mother at age 92 of natural causes. Patient's father at age 86 with complications of emphysema. There is a brother who has coronary artery disease. There is no known history of CVA, diabetes mellitus, or cancer in the family. Living arrangement: At home Living Situation: With spouse/s.o. - Substance History Use: Uses substance without health or social issues: Alcohol Abuse: Recurrent use of substance despite neg consequences: NONE Dependence: Experiences withdrawal or developed tolerances: NONE - POLST Patient has POLST: No POLST Status: Full Code Meds/Allgy - Home Medications Home Medications: Ambulatory Orders Medication Instructions Recorded Confirmed Atorvastatin [Lipitor] 20 mg PO QPM 02/15/16 04/15/18 Losartan [Cozaar] 100 mg PO DAILY 02/15/16 04/15/18 Betaxolol 0.25% Ophth Drops 1 drops EACHEYE BID 02/18/16 04/15/18 [Betoptic S 0.25% Ophth Drops] Brinzolamide 1% Ophth Drops [Azopt 1 drops RIGHTEYE BID 04/15/18 04/15/18 1% Ophth Drops] - Allergies Allergies/Adverse Reactions: Allergies Allergy/AdvReac Type Severity Reaction Status Date / Time oxycodone HCl * Allergy Hallucinati Verified 04/15/18 08:22 [From OxyContin] ons brimonidine tartrate * AdvReac Unknown Verified 04/15/18 08:22 [From Alphagan P] lisinopril AdvReac Unknown Verified 04/15/18 08:22 timolol [Timolol] AdvReac Unknown Verified 04/15/18 08:22 Review of Systems - Other Findings Other Findings: CONSTITUTIONAL: No weight loss, fever, chills, weakness or fatigue. HEENT: Eyes: No visual loss, blurred vision, double vision or yellow sclerae. Ears, Nose, Throat: No hearing loss, sneezing, congestion, runny nose or sore throat. SKIN: No rash or itching. CARDIOVASCULAR: No chest pain, chest pressure or chest discomfort. No palpitations or edema. RESPIRATORY: No shortness of breath, cough or sputum. GASTROINTESTINAL: See above.=== GENITOURINARY: No dysuria. Not . NEUROLOGICAL: No headache, dizziness, syncope, paralysis, ataxia, numbness or tingling in the extremities. No change in bowel or bladder control. MUSCULOSKELETAL: No muscle, back pain, joint pain or stiffness. HEMATOLOGIC: No anemia, bleeding or bruising. LYMPHATICS: No enlarged nodes. No history of splenectomy. PSYCHIATRIC: No history of depression or anxiety. ENDOCRINOLOGIC: No reports of sweating, cold or heat intolerance. No polyuria or polydipsia. ALLERGIES: No history of asthma, hives, eczema or rhinitis. Exam - Vital Signs Reviewed Vital Signs: Yes Vital Signs: Vital Signs x48h Temp Pulse Resp BP Pulse Ox 04/16/18 15:40 36.6 C 90 18 137/53 H 95 - Physical Exam General Appearance: positive: No acute distress (Please note that the examination was done in bed 2 at [facility]'s emergency department.) Eyes Bilateral: positive: No lid inflammation, Conjunctivae nml, No scleral icterus ENT: positive: No signs of dehydration Neck: positive: Trachea midline Respiratory: positive: Chest non-tender, No respiratory distress, Breath sounds nml Cardiovascular: positive: Regular rate & rhythm Abdomen: positive: Non-tender, No organomegaly, Nml bowel sounds, No distention Skin: positive: Color nml Extremities: positive: Non-tender, Nml appearance Neurologic/Psychiatric: positive: Oriented x3 Conclusion/Plan - Diagnosis Diagnosis: Elevated white blood cell count with bandemia and no surgically correctable disease - Plan Plan: I discussed with the patient and her that I felt perfectly comfortable with the patient being sent home. The reason for this is the fact that with the enema and the drainage of her bladder her abdominal exam became entirely and completely benign. She has no signs and/or symptoms of infection or sepsis. Her lactic acid was normal and she is completely afebrile, normotensive , with a normal respiratory rate and heart rate. Her examination is entirely benign. Her has shown himself to be trustworthy. The CT scan as well as the ultrasound were reviewed and again failed to reveal any surgically correctable disease. If I am to theorize the distention in the rectum and bladder may have caused this transient white blood cell count with bacteremia. Now that this has resolved she should continue to improve. At any rate I think it is entirely safe to send the patient home with close follow-up with her primary care physician. 45 minutes [id number] time was spent with the patient with majority of it in discussion, coordination of her care, and completion of the requisite paperwork - Lab Results Lab results reviewed: Yes Reji Bones: 04/16/18 05:25 04/16/18 05:25 - Diagnostic Imaging Results Diagnostic Imaging Results: positive: Final report reviewed, Read independently
[2018-04-17] MEDS: PIPERACILLIN/TAZOBACTAM 3.375 GM in SODIUM CHLORIDE 0.9% MINIBAG 100 ML IV SCH ×3 (01:00→17:37)
[2018-04-17] MEDS: DIPHENOX/ATROPINE 2.5/0.025 MG TABLET PO PRN (04:37)
[2018-04-17 06:53] LABS: BASOPHILS % (AUTO) 0.2 %; EOSINOPHILS % (AUTO) 0.1 %; HGB - HEMOGLOBIN 10.5 g/dL (12.0-16.0); LYMPHOCYTES # (AUTO) 0.5 10^3/uL (1.5-3.5); LYMPHOCYTES % (AUTO) 4.1 %; MEAN CORPUSCULAR HEMOGLOBIN 31.5 pg (27.0-31.0); MEAN CORPUSCULAR HGB CONC 32.7 g/dL (32.0-36.0); MEAN CORPUSCULAR VOLUME 96.4 fL (81.0-99.0); MEAN PLATELET VOLUME 8.3 fL (7.9-10.8); MONOCYTES # (AUTO) 1.3 10^3/uL (0.0-1.0); MONOCYTES % (AUTO) 10.1 %; NEUTROPHILS # (AUTO) 11.2 10^3/uL (1.5-6.6); NEUTROPHILS % (AUTO) 85.5 %; PLT - PLATELET COUNT 471 10^3/uL (130-450); RED BLOOD COUNT 3.33 10^6/uL (4.20-5.40); RED CELL DISTRIBUTION WIDTH 13.9 % (12.0-15.0); WHITE BLOOD COUNT 13.1 x10^3/uL (4.8-10.8)
[2018-04-17 07:06] LABS: ALBUMIN 2.4 g/dL (3.2-5.5); ALBUMIN/GLOBULIN RATIO 0.7 (1.0-2.2); BILIRUBIN,TOTAL 1.3 mg/dL (0.2-1.0); CALCIUM 8.1 mg/dL (8.5-10.3); CREATININE 1.1 mg/dL (0.4-1.0)
[2018-04-17] MEDS: NS W/20 MEQ KCL 1,000 ML IV SCH ×2 (09:16→20:59)
[2018-04-17] MEDS: POTASSIUM CHLORIDE 20 MEQ TABLET PO SCH ×2 (09:19→17:37)
[2018-04-17] MEDS: SACCHAROMYCES BOULARDII 250 MG CAPSULE PO SCH ×2 (09:19→17:37)
[2018-04-17] MEDS: BRINZOLAMIDE 1% OPHTH DROPS RIGHTEYE SCH ×2 (09:21→21:01)
[2018-04-17] MEDS: BETAXOLOL 0.25% OPHTH DROPS EACHEYE SCH ×2 (09:21→21:01)
[2018-04-17] MEDS: SODIUM CHLORIDE FLUSH 0.9% 10 ML SYRINGE IVP SCH ×2 (09:30→17:38)
[2018-04-17] MEDS: POLYETHYLENE GLYCOL 3350 17 GM PACKET PO SCH (09:30)
[2018-04-17] MEDS: MAGNESIUM OXIDE 400 MG TABLET PO SCH ×2 (11:06→21:00)
[2018-04-17] MEDS: metroNIDAZOLE 250 MG TABLET PO SCH ×2 (11:06→19:37)
[2018-04-17] MEDS: PANTOPRAZOLE 40 MG VIAL IVP SCH ×2 (11:07→20:59)
--- NOTE | 2018-04-17 16:23 | PROVIDER PROGRESS NOTE ---
Subjective - Prog Note Date Prog Note Date: 04/17/18 Prog Note Time: 16:21 - Subjective Pt reports feeling: No change Subjective: Zoey continues to complain about generalized fatigue, and states, "something is just not right". She denies a worsening of symptoms such as shortness of breath , chest pain, increased nausea, vomiting, or a new cough. Her is in the room for this exam. Current Medications - Current Medications Current Medications: Active Medications Atorvastatin Calcium (Lipitor) 20 mg PO QPM [facility] Last Admin: 04/16/18 21:42 Dose: Not Given Diphenoxylate HCl/Atropine (Lomotil) 1 tab PO QID PRN PRN Reason: Diarrhea Last Admin: 04/17/18 04:37 Dose: 1 tab Potassium Chloride/Sodium Chloride (Normal Saline 0.9% W/20 Meq Kcl) 1,000 mls @ 83.333 mls/hr IV .Q12H [facility] Last Admin: 04/17/18 09:16 Dose: 83.333 mls/hr Piperacillin Sod/Tazobactam (Sod 3.375 gm/ Sodium Chloride) 100 mls @ 25 mls/ hr IV Q8H [facility] Last Infusion: 04/17/18 13:31 Dose: Infused Magnesium Oxide (Mag Ox) 400 mg PO BID [facility] Last Admin: 04/17/18 11:06 Dose: 400 mg Metronidazole (Flagyl) 500 mg PO Q8H [facility] Last Admin: 04/17/18 11:06 Dose: 500 mg Ondansetron HCl (Zofran Odt) 4 mg TL Q4HR PRN PRN Reason: Nausea / Vomiting Last Admin: 04/16/18 01:51 Dose: 4 mg Pantoprazole Sodium (Protonix) 40 mg IVP BID [facility] Last Admin: 04/17/18 11:07 Dose: 40 mg Betaxolol 0.25% (Ophth Drops) 1 each EACHEYE BID [facility] Last Admin: 04/17/18 09:21 Dose: 1 each Brinzolamide 1% (Ophth Drops) 1 each RIGHTEYE BID [facility] Last Admin: 04/17/18 09:21 Dose: 1 each Polyethylene Glycol (Miralax) 17 gm PO DAILY [facility] Last Admin: 04/17/18 09:30 Dose: Not Given Potassium Chloride (K-Dur) 20 meq PO BIDWM [facility] Last Admin: 04/17/18 09:19 Dose: 20 meq Saccharomyces Boulardii (Florastor) 250 mg PO BIDWM [facility] Last Admin: 04/17/18 09:19 Dose: 250 mg Sodium Chloride (Normal Saline Flush 0.9%) 10 ml IVP PRN PRN PRN Reason: NEEDED PER PROVIDER ORDERS Sodium Chloride (Normal Saline Flush 0.9%) 10 ml IVP 0100,0900,1700 [facility] Last Admin: 04/17/18 09:30 Dose: Not Given Atorvastatin [Lipitor] 20 mg PO QPM 02/15/16 Losartan [Cozaar] 100 mg PO DAILY 02/15/16 Betaxolol 0.25% Ophth Drops [Betoptic S 0.25% Ophth Drops] 1 drops EACHEYE BID 02/18/16 Brinzolamide 1% Ophth Drops [Azopt 1% Ophth Drops] 1 drops RIGHTEYE BID Objective - Vital Signs/Intake & Output Reviewed Vital Signs: Yes Vital Signs: Vital Signs x48h Temp Pulse Pulse Resp BP Pulse Ox 04/17/18 15:34 36.6 C 96 16 129/51 L 100 04/17/18 08:34 36.8 C 91 18 132/56 H 100 Intake & Output: Intake & Output 04/14/18 04/15/18 04/16/18 04/17/18 23:59 23:59 23:59 23:59 Intake Total 240 2402.081 1607.502 Output Total 500 1251 Balance 240 1902.081 356.502 - Objective General Appearance: positive: Alert, Moderate distress Eyes Bilateral: positive: Normal inspection Eyes: OU Conjunctivae pale ENT: positive: ENT inspection nml, Pharynx nml, Pharyngeal erythema, Dry mucous membranes Neck: positive: Nml inspection, Thyroid nml, No JVD, Lymphadenopathy (R), Lymphadenopathy (L) Respiratory: positive: Chest non-tender, No respiratory distress, Breath sounds nml Cardiovascular: positive: Regular rate & rhythm, No gallop, Systolic murmur, Decreased pulse(s) Peripheral Pulses: 1+ Radial (R), 1+ Radial (L) Abdomen: positive: No distention, Guarding, Abnml bowel sounds Back: positive: Nml inspection Skin: positive: No rash, Warm, Dry Extremities: positive: Non-tender, Full ROM, Pedal edema (chronic, dependent BLE edema), Joint swelling Neurologic/Psychiatric: positive: Oriented x3, CN's nml (2-12), Motor nml, Sensation nml, Weakness, Sensory loss, Depressed mood/affect Reflexes: Bicep (R): 2+, Bicep (L): 2+ - Lab Results Fish Bones: 04/18/18 05:29 04/18/18 05:29 Other Labs: Lab Results x24hrs 04/17/18 04/17/18 04/17/18 Range/Units 05:59 05:59 05:59 WBC 13.1 H (4.8-10.8) x10^3/uL RBC 3.33 L (4.20-5.40) 10^6/uL Hgb 10.5 L (12.0-16.0) g/dL Hct 32.1 L (37.0-47.0) % MCV 96.4 (81.0-99.0) fL MCH 31.5 H (27.0-31.0) pg MCHC 32.7 (32.0-36.0) g/dL RDW 13.9 (12.0-15.0) % Plt Count 471 H (130-450) 10^3/uL MPV 8.3 (7.9-10.8) fL Neut # (Auto) 11.2 H (1.5-6.6) 10^3/uL Lymph # (Auto) 0.5 L (1.5-3.5) 10^3/uL [place] # (Auto) 1.3 H (0.0-1.0) 10^3/uL Eos # (Auto) 0.0 (0.0-0.7) 10^3/uL Baso # (Auto) 0.0 (0.0-0.1) 10^3/uL Absolute Nucleated RBC 0.00 x10^3/uL Nucleated RBC % 0.0 /100WBC Sodium 137 (135-145) mmol/L Potassium 2.9 L (3.5-5.0) mmol/L Chloride 106 (101-111) mmol/L Carbon Dioxide 18 L (21-32) mmol/L Anion Gap 13.0 (6-13) BUN 13 (6-20) mg/dL Creatinine 1.1 H (0.4-1.0) mg/dL Estimated GFR (MDRD) 48 L (>89) Glucose 81 (70-100) mg/dL Calcium 8.1 L (8.5-10.3) mg/dL Magnesium 1.6 L (1.7-2.8) mg/dL Total Bilirubin 1.3 H (0.2-1.0) mg/dL AST 24 (10-42) IU/L ALT 27 (10-60) IU/L Alkaline Phosphatase 64 (42-121) IU/L Total Protein 6.0 L (6.7-8.2) g/dL Albumin 2.4 L (3.2-5.5) g/dL Globulin 3.6 (2.1-4.2) g/dL Albumin/Globulin Ratio 0.7 L (1.0-2.2) ABX Reporting Has patient been on IV antibiotics over the past 48 hours?: Yes Assessment/Plan - Problem List (1) Neurogenic dysfunction of the urinary bladder Impression: The patient is having acute neurogenic bladder symptoms that began in the ED at the time of admission. She was also noted to be incontinent of her bowel, which is very abnormal for her. 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 I have ordered a lumbar MRI to be done as early as possible. Plan: Continue with magana cath and search for causes of this. (2) Urinary retention Impression: The patient has needed to be straight cathed several times since the time of admission. She states that this a brand new problem for her and she has never had urinary problems. A UA upon admission was negative for UTI, so no culture was obtained. Her kidney function is reduced with a GFR of only 48 today, so a magana cath will be placed to avoid further kidney injury. Plan: Continue with magana cath and consider urology consult. (3) Abdominal pain Impression: The patient continues to complain of mild to moderate right upper quadrant pain that is worse with palpation. As per imaging, she is not thought to have susana Qualifiers: Abdominal location: right upper quadrant Qualified Code(s): R10.11 - Right upper quadrant pain (4) Hypertension Impression: The patient generally has HTN, and is prescribed Losartan 100 mg PO daily, but has not needed this medication since admission. B/P today was 130's over 60's. Plan: Continue to hold this med and monitor VS. (5) Leukocytosis Impression: The patient had an elevated WBC count upon admission at 18, with predominantly bands and today the WBC is 13.7. The source of infection is still not apparent. A full oral exam was completed and shows no evidence of infection. A MRI of her lumbar spine was ordered, and consideration of a head MRI will be determined. Plan: Continue to monitor daily labs. Qualifiers: Leukocytosis type: bandemia Qualified Code(s): D72.825 - Bandemia (6) Weakness Impression: Zoey admits to weakness, and a feeling of overwhelming fatigue. In a review of her chart, it looks like she has never had cancer, other than skin lesions. Plan: Continue work up. (7) Poor appetite Impression: Although the patient is not vomiting, she has periods of nausea and no appetite. Total protein is low at 5.5 and albumin is low at 2.2. Plan: Continue work up.
[2018-04-17 17:03] LABS: BILIRUBIN,URINE NEGATIVE (NEGATIVE); GLUCOSE, URINE (UA) NEGATIVE (NEGATIVE); KETONES,URINE (UA) 40 mg/dL (NEGATIVE); LEUKOCYTE ESTERASE, URINE NEGATIVE (NEGATIVE); NITRITE,URINE NEGATIVE (NEGATIVE); OCCULT BLOOD,URINE NEGATIVE (NEGATIVE); PH,URINE 5.5 PH (5.0-7.5); PROTEIN,URINE TRACE mg/dL (NEGATIVE); UROBILINOGEN,URINE 0.2 (NORMAL) E.U./dL (NORMAL)
[2018-04-17 17:06] LABS: CLARITY,URINE CLEAR (CLEAR)
[2018-04-17 17:11] LABS: RBC,URINE 0-5 /HPF (0-5)
[2018-04-17 17:12] LABS: AMORPHOUS SEDIMENT,UR Few /LPF; BACTERIA,URINE None Seen /HPF (None Seen); MUCUS,URINE Few Strands; SQUAMOUS EPITHELIAL CELL,UR RARE Squamous (<= Few)
[2018-04-17] MEDS ORDERED: ZINC OXIDE 20% OINT 28.35 GM TUBE TOP PRN (18:54)
[2018-04-17] MEDS: ATORVASTATIN 10 MG TABLET PO SCH (20:58)
[2018-04-18] MEDS: PIPERACILLIN/TAZOBACTAM 3.375 GM in SODIUM CHLORIDE 0.9% MINIBAG 100 ML IV SCH ×3 (01:14→18:23)
[2018-04-18] MEDS: SODIUM CHLORIDE FLUSH 0.9% 10 ML SYRINGE IVP SCH ×3 (01:15→18:24)
[2018-04-18] MEDS: metroNIDAZOLE 250 MG TABLET PO SCH ×4 (03:28→20:32)
[2018-04-18] MEDS: DIPHENOX/ATROPINE 2.5/0.025 MG TABLET PO PRN (03:43)
[2018-04-18 06:16] LABS: BASOPHILS # (AUTO) 0.1 10^3/uL (0.0-0.1); BASOPHILS % (AUTO) 0.5 %; EOSINOPHILS % (AUTO) 0.4 %; HGB - HEMOGLOBIN 9.4 g/dL (12.0-16.0); LYMPHOCYTES # (AUTO) 0.6 10^3/uL (1.5-3.5); LYMPHOCYTES % (AUTO) 5.7 %; MEAN CORPUSCULAR HGB CONC 32.8 g/dL (32.0-36.0); MEAN CORPUSCULAR VOLUME 94.6 fL (81.0-99.0); MEAN PLATELET VOLUME 8.1 fL (7.9-10.8); NEUTROPHILS # (AUTO) 9.5 10^3/uL (1.5-6.6); NEUTROPHILS % (AUTO) 84.4 %; PLT - PLATELET COUNT 459 10^3/uL (130-450); RED BLOOD COUNT 3.05 10^6/uL (4.20-5.40); RED CELL DISTRIBUTION WIDTH 13.5 % (12.0-15.0); WHITE BLOOD COUNT 11.3 x10^3/uL (4.8-10.8)
[2018-04-18 06:27] LABS: ALBUMIN 2.2 g/dL (3.2-5.5); ALBUMIN/GLOBULIN RATIO 0.7 (1.0-2.2); BILIRUBIN,TOTAL 1.1 mg/dL (0.2-1.0); CALCIUM 8.2 mg/dL (8.5-10.3); CREATININE 0.9 mg/dL (0.4-1.0); TOTAL PROTEIN 5.5 g/dL (6.7-8.2)
[2018-04-18] MEDS: NS W/20 MEQ KCL 1,000 ML IV SCH ×2 (09:20→20:31)
[2018-04-18] MEDS: POTASSIUM CHLORIDE 20 MEQ TABLET PO SCH ×2 (10:31→18:23)
[2018-04-18] MEDS: PANTOPRAZOLE 40 MG VIAL IVP SCH ×2 (10:31→20:33)
[2018-04-18] MEDS: SACCHAROMYCES BOULARDII 250 MG CAPSULE PO SCH ×2 (10:32→18:23)
[2018-04-18] MEDS: MAGNESIUM OXIDE 400 MG TABLET PO SCH ×2 (10:32→20:32)
[2018-04-18] MEDS: BETAXOLOL 0.25% OPHTH DROPS EACHEYE SCH ×2 (10:33→20:36)
[2018-04-18] MEDS: BRINZOLAMIDE 1% OPHTH DROPS RIGHTEYE SCH ×2 (10:33→20:36)
[2018-04-18] MEDS: POLYETHYLENE GLYCOL 3350 17 GM PACKET PO SCH (10:40)
--- NOTE | 2018-04-18 12:43 | PROVIDER PROGRESS NOTE ---
Subjective - Prog Note Date Prog Note Date: 04/18/18 - Subjective Pt reports feeling: No change Subjective: This patient was evaluated in the ER by Dr. Addison on admission. I was requested to re-evaluate the patient for increasing LFT's and persistent abdominal pain. In short, she began having nausea, vomiting, diarrhea and abdominal pain March 31. She was seen by her PCP a few times and tried a clear liquid diet and immodium. This helped a bit but she had persistent nausea and abdominal pain and eventually came to the ER. She was noted to have a significant leukocytosis, however, a non-contrast CT and a RUQ US were negative. She did have sludge in the gallbladder, but no signs of cholecystitis. Additionally she has been having urinary retention and has a magana catheter. She denies localized pain in the RUQ. She is tolerating a regular diet but does have persistent diarrhea and nausea. She is negative for c.diff. Objective - Vital Signs/Intake & Output Reviewed Vital Signs: Yes Vital Signs: Vital Signs x48h Temp Pulse Resp BP Pulse Ox 04/18/18 07:59 37.6 C H 94 18 137/54 H 100 Intake & Output: Intake & Output 04/15/18 04/16/18 04/17/18 04/18/18 23:59 23:59 23:59 23:59 Intake Total 240 2402.081 2983.887 1150 Output Total 500 1576 302 Balance 240 1043.806 0768.887 848 - Objective Respiratory: positive: No respiratory distress Cardiovascular: positive: Regular rate & rhythm Abdomen: positive: Other (non-tender to light palpation, non-distended. Negative Mendieta's sign.) Extremities: positive: No pedal edema Neurologic/Psychiatric: positive: Oriented x3 - Lab Results Fish Bones: 04/18/18 05:29 04/18/18 05:29 Other Labs: Lab Results x24hrs 04/18/18 04/18/18 04/18/18 Range/Units 05:29 05:29 05:29 WBC 11.3 H (4.8-10.8) x10^3/uL RBC 3.05 L (4.20-5.40) 10^6/uL Hgb 9.4 L (12.0-16.0) g/dL Hct 28.8 L (37.0-47.0) % MCV 94.6 (81.0-99.0) fL MCH 31.0 (27.0-31.0) pg MCHC 32.8 (32.0-36.0) g/dL RDW 13.5 (12.0-15.0) % Plt Count 459 H (130-450) 10^3/uL MPV 8.1 (7.9-10.8) fL Neut # (Auto) 9.5 H (1.5-6.6) 10^3/uL Lymph # (Auto) 0.6 L (1.5-3.5) 10^3/uL [place] # (Auto) 1.0 (0.0-1.0) 10^3/uL Eos # (Auto) 0.0 (0.0-0.7) 10^3/uL Baso # (Auto) 0.1 (0.0-0.1) 10^3/uL Absolute Nucleated RBC 0.00 x10^3/uL Nucleated RBC % 0.0 /100WBC Sodium 139 (135-145) mmol/L Potassium 3.7 (3.5-5.0) mmol/L Chloride 110 (101-111) mmol/L Carbon Dioxide 20 L (21-32) mmol/L Anion Gap 9.0 (6-13) BUN 10 (6-20) mg/dL Creatinine 0.9 (0.4-1.0) mg/dL Estimated GFR (MDRD) 61 L (>89) Glucose 101 H (70-100) mg/dL Calcium 8.2 L (8.5-10.3) mg/dL Total Bilirubin 1.1 H (0.2-1.0) mg/dL AST 18 (10-42) IU/L ALT 20 (10-60) IU/L Alkaline Phosphatase 52 (42-121) IU/L Total Protein 5.5 L (6.7-8.2) g/dL Albumin 2.2 L (3.2-5.5) g/dL Globulin 3.3 (2.1-4.2) g/dL Albumin/Globulin Ratio 0.7 L (1.0-2.2) Lipase 21 L (22-51) U/L Urine Color Urine Clarity (CLEAR) Urine pH (5.0-7.5) PH Ur Specific [place] (1.002-1.030) Urine Protein (NEGATIVE) mg/dL Urine Glucose (UA) (NEGATIVE) mg/dL Urine Ketones (NEGATIVE) mg/dL Urine Occult Blood (NEGATIVE) Urine Nitrite (NEGATIVE) Urine Bilirubin (NEGATIVE) Urine Urobilinogen (NORMAL) E.U./dL Ur Leukocyte Esterase (NEGATIVE) Urine RBC (0-5) /HPF Urine WBC (0-5) /HPF Ur Squamous Epith Cells (<= Few) Amorphous Sediment /LPF Urine Bacteria (None Seen) /HPF Urine Mucus Urine Culture Comments 04/17/18 Range/Units 16:45 WBC (4.8-10.8) x10^3/uL RBC (4.20-5.40) 10^6/uL Hgb (12.0-16.0) g/dL Hct (37.0-47.0) % MCV (81.0-99.0) fL MCH (27.0-31.0) pg MCHC (32.0-36.0) g/dL RDW (12.0-15.0) % Plt Count (130-450) 10^3/uL MPV (7.9-10.8) fL Neut # (Auto) (1.5-6.6) 10^3/uL Lymph # (Auto) (1.5-3.5) 10^3/uL [place] # (Auto) (0.0-1.0) 10^3/uL Eos # (Auto) (0.0-0.7) 10^3/uL Baso # (Auto) (0.0-0.1) 10^3/uL Absolute Nucleated RBC x10^3/uL Nucleated RBC % /100WBC Sodium (135-145) mmol/L Potassium (3.5-5.0) mmol/L Chloride (101-111) mmol/L Carbon Dioxide (21-32) mmol/L Anion Gap (6-13) BUN (6-20) mg/dL Creatinine (0.4-1.0) mg/dL Estimated GFR (MDRD) (>89) Glucose (70-100) mg/dL Calcium (8.5-10.3) mg/dL Total Bilirubin (0.2-1.0) mg/dL AST (10-42) IU/L ALT (10-60) IU/L Alkaline Phosphatase (42-121) IU/L Total Protein (6.7-8.2) g/dL Albumin (3.2-5.5) g/dL Globulin (2.1-4.2) g/dL Albumin/Globulin Ratio (1.0-2.2) Lipase (22-51) U/L Urine Color YELLOW Urine Clarity CLEAR (CLEAR) Urine pH 5.5 (5.0-7.5) PH Ur Specific [place] 1.025 (1.002-1.030) Urine Protein TRACE (NEGATIVE) mg/dL Urine Glucose (UA) NEGATIVE (NEGATIVE) mg/dL Urine Ketones 40 H (NEGATIVE) mg/dL Urine Occult Blood NEGATIVE (NEGATIVE) Urine Nitrite NEGATIVE (NEGATIVE) Urine Bilirubin NEGATIVE (NEGATIVE) Urine Urobilinogen 0.2 (NORMAL) (NORMAL) E.U./dL Ur Leukocyte Esterase NEGATIVE (NEGATIVE) Urine RBC 0-5 (0-5) /HPF Urine WBC 0-3 (0-5) /HPF Ur Squamous Epith Cells RARE Squamous (<= Few) Amorphous Sediment Few /LPF Urine Bacteria None Seen (None Seen) /HPF Urine Mucus Few Strands Urine Culture Comments NOT INDICATED ABX Reporting Has patient been on IV antibiotics over the past 48 hours?: Yes Assessment/Plan - Problem List (1) Abdominal pain Impression: The patient's imaging and labs have been reviewed: Her leukocytosis is improving. Her total bilirubin is slightly elevated today at 1.1 and the rest of her LFT's are normal. Gallbladder is a very unlikely source of her complaints , however, HIDA scan could be used to rule this out. I am told that we do not have nuclear medicine capabilities until the first week of April. IV and oral contrast CT abd/pelvis or MRI may be helpful to rule out other intra-abdominal pathology. Qualifiers: Abdominal location: right upper quadrant Qualified Code(s): R10.11 - Right upper quadrant pain
--- NOTE | 2018-04-18 17:27 | PROVIDER PROGRESS NOTE ---
Assessment/Plan - Problem List (1) Abdominal pain Qualifiers: Abdominal location: left lower quadrant Qualified Code(s): R10.32 - Left lower quadrant pain Assessment/Plan: The patient requested a change of provider while she is here. CONTACT [employer] SUPERVISOR Td Evans turned over her care to me. I reviewed entire chart and repeated the admission H &P questions with the patuient, the and son were in the room. No evidence of stool in vault on rectal exam today, to explain persistent diarrhea around a stool-impacted rectum. Will re-image the abdomen with iv and oral contrast. Continue BRAT diet. She still appears dehydrated clinically. Will increase iv fluids to 150 cc/hr. (2) Neurogenic dysfunction of the urinary bladder Assessment/Plan: Continue magana while she still has diarrhea. Eventually she will need a Urology evaluation for bladder distension of unknown duration, along with an abnormal sensory exam (DUANE classification of neurologic impairment showed R perirectal sensory loss) (3) Leukocytosis Qualifiers: Leukocytosis type: bandemia Qualified Code(s): D72.825 - Bandemia Assessment/Plan: WBC and % neuts is decreasing. She is on empiric antibiotics however. Will re-image abdomen pelvis for F/U of distended rectum and urinary bladder and to evaluate LLQ pain. (4) Hypertension Assessment/Plan: The patient has not needed her Lisinopril since being admitted as she has a low diastolic BP since she is here. This suggests persistent intravascular volume depletion. (5) Hyperlipidemia Assessment/Plan: Will stop statin while she has diarrhea and abdominal complaints, along with mild increase LFTs. (6) Aortic stenosis Assessment/Plan: The Echo done here shows mild , preserved LVEF. There was a concern about her tooth implant that was done in February, as to proper dental prophylaxis and possible endocarditis. But, indeed she did take perioperative antibiotics and oral rinse as prescribed. (7) Glaucoma Assessment/Plan: Continue eye drops. - Current Meds Current Meds: Current Medications Generic Name Dose Route Start Last Admin Trade Name Freq PRN Reason Stop Dose Admin Diphenoxylate HCl/Atropine 1 tab 04/16/18 21:12 04/18/18 03:43 Lomotil PO 1 tab QID PRN Administration Diarrhea Piperacillin Sod/Tazobactam 100 mls @ 25 mls/hr 04/16/18 16:00 04/18/18 14:15 Sod 3.375 gm/ Sodium Chloride IV Infused Q8H AMOL Infusion Magnesium Oxide 400 mg 04/17/18 11:00 04/18/18 10:32 Mag Ox PO 400 mg BID AMOL Administration Metronidazole 500 mg 04/17/18 11:00 04/18/18 11:14 Flagyl PO 500 mg Q8H AMOL Administration Ondansetron HCl 4 mg 04/16/18 00:55 04/16/18 01:51 Zofran Odt TL 4 mg Q4HR PRN Administration Nausea / Vomiting Pantoprazole Sodium 40 mg 04/17/18 11:00 04/18/18 10:31 Protonix IVP 40 mg BID AMOL Administration Betaxolol 0.25% 1 each 04/15/18 21:00 04/18/18 10:33 Ophth Drops EACHEYE 1 each BID AMOL Administration Brinzolamide 1% 1 each 04/15/18 21:00 04/18/18 10:33 Ophth Drops RIGHTEYE 1 each BID AMOL Administration Potassium Chloride 20 meq 04/17/18 08:00 04/18/18 10:31 K-Dur PO 20 meq BIDWM AMOL Administration Saccharomyces Boulardii 250 mg 04/16/18 22:00 04/18/18 10:32 Florastor PO 250 mg BIDWM AMOL Administration Sodium Chloride 10 ml 04/15/18 18:41 04/17/18 20:59 Normal Saline Flush 0.9% IVP 10 ml PRN PRN Administration NEEDED PER PROVIDER ORDERS Sodium Chloride 10 ml 04/16/18 01:00 04/18/18 10:41 Normal Saline Flush 0.9% IVP 10 ml 0100,0900,1700 AMOL Administration - Lab Result Fish Bone Diagrams: 04/18/18 05:29 04/18/18 05:29 - Additional Planning My Orders: My Active Orders 04/18/18 Consult [General Surgery Consult] [CONS] Routine Guiaic [OCCULT BLOOD IN PAT. SINGLE] [RAPID] Urgent OVA AND PARASITE [REFLAB] Urgent Evaluate and Treat PT [PT] Routine 04/18/18 17:21 Abdomen/Pelvis W/ [CT] Stat 04/18/18 17:22 NPO [DIET] 04/18/18 17:23 Miscellaenous Nursing Order [RC] QSHIFT Ns W/20 Meq KCl [Normal Saline 0.9% W/20 Meq KCl] 1,000 ml IV 150 mls/hr 04/19/18 05:00 CBC - COMP BLD CT W/AUTO DIFF [HEME] DAILYLAB CMP [COMPREHENSIVE METABOLIC PANEL] [CHEM] DAILYLAB 04/20/18 05:00 CBC - COMP BLD CT W/AUTO DIFF [HEME] DAILYLAB CMP [COMPREHENSIVE METABOLIC PANEL] [CHEM] DAILYLAB 04/21/18 05:00 CBC - COMP BLD CT W/AUTO DIFF [HEME] DAILYLAB CMP [COMPREHENSIVE METABOLIC PANEL] [CHEM] DAILYLAB Subjective - Subjective Patient Reports: Abdominal Pain, Diarrhea, Other (Feel "not right". Hoarse voice since had violent vomiting 3 days ago. Stool is liquid, gets crampy urge to deficate and is incontinent of liquid stool.) Nursing Reports: Other (She is incontinent of stool.) Objective Vital Signs: Vital Signs - 24 hr 04/18/18 04/18/18 04/18/18 01:11 07:59 16:26 Temperature 36.8 C 37.6 C H 37.1 C Heart Rate [ 99 94 93 Brachial] Respiratory 16 18 18 Rate Blood Pressure 137/54 H 143/51 H [Right Brachial artery] O2 Saturation 97 100 100 Oxygen O2 Source Room air I&O (Last 24 Hrs): Intake and Output Totals x24h 04/16/18 04/17/18 04/18/18 23:59 23:59 23:59 Intake Total 2402.081 2983.887 1890 Output Total 500 1576 1202 Balance 4338.718 2300.887 688 General: Alert, Oriented x3 HEENT: Other (Mucosa very dry. 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 I performed Sensory and Motor exam of S3 and S4-5 with her RN, Delfina in assistance. She has no motor impairment. She DOES have sensory impairment to pin prick on the Right in L2-S1, then impairment to pin prick and light touch in S3-S5 distributions.) Cardiovascular: Regular rate, Other (1-2/6 systolic murmur at base and LLSB.) Respiratory: No respiratory distress Abdomen: Soft, Other (Decreased bowel sounds throughout, tender to touch in LLQ , no rebound or guarding.) - Results Results: Laboratory Results WBC 11.3 x10^3/uL (4.8-10.8) H 04/18/18 05:29 RBC 3.05 10^6/uL (4.20-5.40) L 04/18/18 05:29 Hgb 9.4 g/dL (12.0-16.0) L 04/18/18 05:29 Hct 28.8 % (37.0-47.0) L 04/18/18 05:29 MCV 94.6 fL (81.0-99.0) 04/18/18 05: MCH 31.0 pg (27.0-31.0) 04/18/18 05: MCHC 32.8 g/dL (32.0-36.0) 04/18/18 05: RDW 13.5 % (12.0-15.0) 04/18/18 05:29 Plt Count 459 10^3/uL (130-450) H 04/18/18 05:29 MPV 8.1 fL (7.9-10.8) 04/18/18 05:29 Neut # (Auto) 9.5 10^3/uL (1.5-6.6) H 04/18/18 05:29 Lymph # (Auto) 0.6 10^3/uL (1.5-3.5) L 04/18/18 05:29 [place] # (Auto) 1.0 10^3/uL (0.0-1.0) 04/18/18 05:29 Eos # (Auto) 0.0 10^3/uL (0.0-0.7) 04/18/18 05:29 Baso # (Auto) 0.1 10^3/uL (0.0-0.1) 04/18/18 05:29 Absolute Nucleated RBC 0.00 x10^3/uL 04/18/18 05:29 Total Counted 100 04/15/18 17:00 Band Neuts % (Manual) 36 % (0-10) H 04/15/18 17:00 Abnorm Lymph % (Manual) 0 % 04/15/18 17:00 Metamyelocytes % 1 % (-0) H 04/15/18 08:44 Nucleated RBC % 0.0 /100WBC 04/18/18 05:29 Neutrophils # (Manual) 13.0 10^3/uL (1.5-6.6) H 04/15/18 17:00 Lymphocytes # (Manual) 1.0 10^3/uL (1.5-3.5) L 04/15/18 17:00 Monocytes # (Manual) 0.9 10^3/uL (0.0-1.0) 04/15/18 17:00 Eosinophils # (Manual) 0.0 10^3/uL (0-0.7) 04/15/18 17:00 Basophils # (Manual) 0.0 10^3/uL (0-0.1) 04/15/18 17:00 Differential Comment MANUAL DIFFERENTIAL 04/15/18 17:00 WBC Morphology 1+ DOHLE BODIES (NORMAL) 04/15/18 17:00 Platelet Estimate INCREASED (>450,000) (NORMAL) 04/15/18 17:00 Platelet Morphology NORMAL APPEARANCE (NORMAL) 04/15/18 17:00 RBC Morph Micro Appear NORMAL APPEARANCE (NORMAL) 04/15/18 17:00 Sodium 139 mmol/L (135-145) 04/18/18 05:29 Potassium 3.7 mmol/L (3.5-5.0) 04/18/18 05:29 Chloride 110 mmol/L (101-111) 04/18/18 05:29 Carbon Dioxide 20 mmol/L (21-32) L 04/18/18 05:29 Anion Gap 9.0 (6-13) 04/18/18 05:29 BUN 10 mg/dL (6-20) 04/18/18 05:29 Creatinine 0.9 mg/dL (0.4-1.0) 04/18/18 05:29 Estimated GFR (MDRD) 61 (>89) L 04/18/18 05:29 Glucose 101 mg/dL (70-100) H 04/18/18 05:29 Lactic Acid 1.3 mmol/L (0.5-2.2) 04/15/18 11:08 Calcium 8.2 mg/dL (8.5-10.3) L 04/18/18 05:29 Magnesium 1.6 mg/dL (1.7-2.8) L 04/17/18 05:59 Total Bilirubin 1.1 mg/dL (0.2-1.0) H 04/18/18 05:29 AST 18 IU/L (10-42) 04/18/18 05:29 ALT 20 IU/L (10-60) 04/18/18 05:29 Alkaline Phosphatase 52 IU/L (42-121) 04/18/18 05:29 Total Protein 5.5 g/dL (6.7-8.2) L 04/18/18 05:29 Albumin 2.2 g/dL (3.2-5.5) L 04/18/18 05:29 Globulin 3.3 g/dL (2.1-4.2) 04/18/18 05:29 Albumin/Globulin Ratio 0.7 (1.0-2.2) L 04/18/18 05:29 Lipase 21 U/L (22-51) L 04/18/18 05:29 Urine Color YELLOW 04/17/18 16:45 Urine Clarity CLEAR (CLEAR) 04/17/18 16:45 Urine pH 5.5 PH (5.0-7.5) 04/17/18 16:45 Ur Specific [place] 1.025 (1.002-1.030) 04/17/18 16:45 Urine Protein TRACE mg/dL (NEGATIVE) 04/17/18 16:45 Urine Glucose (UA) NEGATIVE mg/dL (NEGATIVE) 04/17/18 16:45 Urine Ketones 40 mg/dL (NEGATIVE) H 04/17/18 16:45 Urine Occult Blood NEGATIVE (NEGATIVE) 04/17/18 16:45 Urine Nitrite NEGATIVE (NEGATIVE) 04/17/18 16:45 Urine Bilirubin NEGATIVE (NEGATIVE) 04/17/18 16:45 Urine Urobilinogen 0.2 (NORMAL) E.U./dL (NORMAL) 04/17/18 16:45 Ur Leukocyte Esterase NEGATIVE (NEGATIVE) 04/17/18 16:45 Urine RBC 0-5 /HPF (0-5) 04/17/18 16:45 Urine WBC 0-3 /HPF (0-5) 04/17/18 16:45 Ur Squamous Epith Cells RARE Squamous (<= Few) 04/17/18 16:45 Amorphous Sediment Few /LPF 04/17/18 16:45 Urine Bacteria None Seen /HPF (None Seen) 04/17/18 16:45 Urine Mucus Few Strands 04/17/18 16:45 Ur Microscopic Review NOT INDICATED 04/15/18 09:22 Urine Culture Comments NOT INDICATED 04/17/18 16:45 - Procedures Procedures: Procedures INSPECTION OF LOWER INTESTINAL TRACT, ENDO (02/18/16) INSPECTION OF UPPER INTESTINAL TRACT, ENDO (02/18/16)
[2018-04-18] MEDS ORDERED: IOPAMIDOL-300 100 ML VIAL ONE (17:40)
[2018-04-18] MEDS ORDERED: IOPAMIDOL-300 100 ML VIAL IVP ONE (17:52)
--- NOTE | 2018-04-18 20:23 | CT Report ---
Procedure Date: 04/18/2018 Accession Number: [id number] / [id number] Procedure: CT - Abdomen/Pelvis W/ CPT Code: FULL RESULT: EXAM: CT ABDOMEN AND PELVIS EXAM DATE: 04/18/2018 06:02 PM. CLINICAL HISTORY: Fever, elevated white blood cell count, left lower quadrant pain, diarrhea. COMPARISONS: CT abdomen and pelvis 04/15/2018. TECHNIQUE: Routine helical CT imaging was performed through the abdomen and pelvis. IV contrast: Yes. Enteric contrast: No. Reconstructions: Coronal and sagittal. In accordance with CT protocol optimization, one or more of the following dose reduction techniques were utilized for this exam: automated exposure control, adjustment of mA and/or KV based on patient size, or use of iterative reconstructive technique. FINDINGS: Lung bases: Very small bilateral pleural effusions. Small hiatal hernia. Liver: Within normal limits. Gallbladder: Moderate amount of gallbladder sludge suspected. Bile ducts: Unremarkable. Pancreas: Unremarkable. Spleen: Unremarkable. Adrenals: Unremarkable. Kidneys: Mild bilateral hydronephrosis and dilated extrarenal pelves, with hydroureter. These appear mildly increased compared to prior exam, and could be caused by the large probable pelvic abscess causing mass effect on the ureters. Prominent aortocaval lymph node at the level of the kidneys, mildly increased, measures 9 mm. Bowel/pelvis: Large fluid collection with air-fluid level with diffuse rim of enhancement seen in the pelvis, measures 8.4 x 10.7 x 11.5 cm, increased compared to prior. There is a rim enhancing locular fluid collection with a small connection to the larger fluid collection seen in the left side of the pelvis anteriorly. This has moderate air-fluid level and measures 4.6 x 5.3 cm. There is more fluid in this collection on today's exam. These findings are most concerning for pelvic abscesses. Moderate sigmoid diverticulosis. These could be from perforated sigmoid diverticulitis. There are a few other collections of gas seen in the left anterior pelvis consistent with bowel perforation with localized free air, with the largest measuring 2 cm. There is adjacent pelvic inflammation. The largest fluid collection causes mass effect on the sigmoid colon pushing it posteriorly. This causes mass effect on the uterus pushing it anteriorly. The bladder is decompressed with a Faith catheter in place. Faith catheter is higher in the bladder on the right side. No dilated bowel loops are seen. Vascular structures: Marked atherosclerotic calcification of the abdominal aorta. No abdominal aortic aneurysm. Osseous fusion at L4, L5 and S1 vertebral bodies with grade 2 anterolisthesis of L4 on L5, unchanged. IMPRESSION: 1. Large fluid collection with air-fluid level with diffuse rim of enhancement seen in the pelvis, measures 8.4 x 10.7 x 11.5 cm, increased compared to prior. There is a rim enhancing locular fluid collection with a small connection to the larger fluid collection seen in the left side of the pelvis anteriorly. This has moderate air-fluid level and measures 4.6 x 5.3 cm. There is more fluid in this collection on today's exam. These findings are most concerning for pelvic abscesses. A repeat pelvis CT with Gastrografin rectal contrast could be obtained to confirm the extraluminal location of these fluid collections. Moderate sigmoid diverticulosis. These could be from perforated sigmoid diverticulitis. There are a few other collections of gas seen in the left anterior pelvis consistent with bowel perforation with localized free air, with the largest measuring 2 cm. There is adjacent pelvic inflammation. The largest fluid collection causes mass effect on the sigmoid colon pushing it posteriorly. This causes mass effect on the uterus pushing it anteriorly. The bladder is decompressed with a Faith catheter in place. Mild bilateral hydronephrosis and dilated extra renal pelves, with hydroureter. These appear mildly increased compared to prior exam, and could be caused by the large probable pelvic abscess causing mass effect on the ureters. 2. Very small bilateral pleural effusions. Small hiatal hernia. 3. Moderate amount of gallbladder sludge suspected. RADIA The above findings were discussed with Dr. Kwok by Dr. Felisa Valverde at 20:14 hrs on 04/18/18.
[2018-04-19] MEDS: PIPERACILLIN/TAZOBACTAM 3.375 GM in SODIUM CHLORIDE 0.9% MINIBAG 100 ML IV SCH (00:49)
[2018-04-19] MEDS: NS W/20 MEQ KCL 1,000 ML IV SCH ×4 (01:32→17:19)
[2018-04-19] MEDS ORDERED: IBUPROFEN 400 MG TABLET PO PRN (01:44)
[2018-04-19] MEDS: SODIUM CHLORIDE FLUSH 0.9% 10 ML SYRINGE IVP SCH ×3 (04:59→18:45)
[2018-04-19 06:00] LABS: BASOPHILS % (AUTO) 0.3 %; EOSINOPHILS # (AUTO) 0.1 10^3/uL (0.0-0.7); EOSINOPHILS % (AUTO) 0.4 %; HGB - HEMOGLOBIN 10.3 g/dL (12.0-16.0); LYMPHOCYTES # (AUTO) 0.5 10^3/uL (1.5-3.5); MEAN CORPUSCULAR HEMOGLOBIN 31.1 pg (27.0-31.0); MEAN CORPUSCULAR HGB CONC 32.7 g/dL (32.0-36.0); MEAN CORPUSCULAR VOLUME 95.1 fL (81.0-99.0); MEAN PLATELET VOLUME 7.9 fL (7.9-10.8); MONOCYTES % (AUTO) 7.5 %; NEUTROPHILS # (AUTO) 11.8 10^3/uL (1.5-6.6); NEUTROPHILS % (AUTO) 87.8 %; PLT - PLATELET COUNT 447 10^3/uL (130-450); RED CELL DISTRIBUTION WIDTH 13.6 % (12.0-15.0); WHITE BLOOD COUNT 13.5 x10^3/uL (4.8-10.8)
[2018-04-19 06:06] LABS: ALBUMIN 2.1 g/dL (3.2-5.5); ALBUMIN/GLOBULIN RATIO 0.6 (1.0-2.2); BILIRUBIN,TOTAL 1.1 mg/dL (0.2-1.0); CALCIUM 8.3 mg/dL (8.5-10.3); CREATININE 0.9 mg/dL (0.4-1.0); TOTAL PROTEIN 5.5 g/dL (6.7-8.2)
[2018-04-19] MEDS ORDERED: metroNIDAZOLE 500 MG/100 ML 500 MG/100 ML BAG IV SCH (08:00)
[2018-04-19] MEDS: DIPHENOX/ATROPINE 2.5/0.025 MG TABLET PO PRN ×2 (08:31→20:21)
[2018-04-19] MEDS: MAGNESIUM OXIDE 400 MG TABLET PO SCH ×2 (08:32→20:21)
[2018-04-19] MEDS: SACCHAROMYCES BOULARDII 250 MG CAPSULE PO SCH ×2 (08:32→17:07)
[2018-04-19] MEDS: POTASSIUM CHLORIDE 20 MEQ TABLET PO SCH ×2 (08:34→17:07)
[2018-04-19] MEDS: PANTOPRAZOLE 40 MG VIAL IVP SCH ×2 (08:34→20:21)
[2018-04-19] MEDS ORDERED: PETROLATUM WHITE 5 GM PACKET TOP ONE (08:38)
[2018-04-19] MEDS ORDERED: PIPERACILLIN/TAZOBACTAM 3.375 GM in SODIUM CHLORIDE 0.9% MINIBAG 100 ML IV SCH (10:00)
[2018-04-19] MEDS: metroNIDAZOLE 500 MG/100 ML 500 MG/100 ML BAG IV SCH ×2 (10:14→17:57)
[2018-04-19] MEDS: BETAXOLOL 0.25% OPHTH DROPS EACHEYE SCH (10:16)
[2018-04-19] MEDS: BRINZOLAMIDE 1% OPHTH DROPS RIGHTEYE SCH (10:16)
[2018-04-19] MEDS ORDERED: PIPERACILLIN/TAZOBACTAM 2.25 GM in SODIUM CHLORIDE 0.9% MINIBAG 100 ML IV SCH ×2 (11:00→16:00)
[2018-04-19 15:50] VITALS: BP 131/42
--- NOTE | 2018-04-19 19:03 | Discharge Plan ---
Discharge Plan Disposition: 02 Transfer Acute Care Hosp Condition: Serious No Smoking: If you smoke, Please STOP! Call for help. Follow-up with: Na Tenorio PA-C [Primary Care Provider] -
[2018-04-19] MEDS ORDERED: valACYclovir 500 MG TABLET PO ONE (19:07)
--- NOTE | 2018-04-20 | PROVIDER PROGRESS NOTE ---
Subjective - General Admit Date: 04/15/18 - Review of Systems Gastrointestinal: positive: Abdominal pain All Other Systems: positive: Reviewed and negative Objective - Patient Data Reviewed Vital Signs: Yes Weight: Weight 04/18/18 04/19/18 04/20/18 23:59 23:59 23:59 Weight (kg) 57 kg 57 kg Intake & Output: Intake and Output Totals x24h 04/18/18 04/19/18 04/20/18 23:59 23:59 23:59 Intake Total 3290.000 3400 Output Total 1802 1600 Balance 4820.212 8668 - Lab Results Lab Results: 04/19/18 05:45 04/19/18 05:45 Other Lab Results: Lab Results x24hrs 04/19/18 04/19/18 Range/Units 05:45 05:45 WBC 13.5 H (4.8-10.8) x10^3/uL RBC 3.30 L (4.20-5.40) 10^6/uL Hgb 10.3 L (12.0-16.0) g/dL Hct 31.4 L (37.0-47.0) % MCV 95.1 (81.0-99.0) fL MCH 31.1 H (27.0-31.0) pg MCHC 32.7 (32.0-36.0) g/dL RDW 13.6 (12.0-15.0) % Plt Count 447 (130-450) 10^3/uL MPV 7.9 (7.9-10.8) fL Neut # (Auto) 11.8 H (1.5-6.6) 10^3/uL Lymph # (Auto) 0.5 L (1.5-3.5) 10^3/uL [place] # (Auto) 1.0 (0.0-1.0) 10^3/uL Eos # (Auto) 0.1 (0.0-0.7) 10^3/uL Baso # (Auto) 0.0 (0.0-0.1) 10^3/uL Absolute Nucleated RBC 0.00 x10^3/uL Nucleated RBC % 0.0 /100WBC Sodium 138 (135-145) mmol/L Potassium 4.5 (3.5-5.0) mmol/L Chloride 110 (101-111) mmol/L Carbon Dioxide 15 L (21-32) mmol/L Anion Gap 13.0 (6-13) BUN 6 (6-20) mg/dL Creatinine 0.9 (0.4-1.0) mg/dL Estimated GFR (MDRD) 61 L (>89) Glucose 78 (70-100) mg/dL Calcium 8.3 L (8.5-10.3) mg/dL Total Bilirubin 1.1 H (0.2-1.0) mg/dL AST 14 (10-42) IU/L ALT 17 (10-60) IU/L Alkaline Phosphatase 52 (42-121) IU/L Total Protein 5.5 L (6.7-8.2) g/dL Albumin 2.1 L (3.2-5.5) g/dL Globulin 3.4 (2.1-4.2) g/dL Albumin/Globulin Ratio 0.6 L (1.0-2.2) - Physical Exam General Appearance: positive: No acute distress Eyes Bilateral: positive: No lid inflammation, Conjunctivae nml, No scleral icterus ENT: positive: No signs of dehydration Neck: positive: Trachea midline Respiratory: positive: Chest non-tender Cardiovascular: positive: Regular rate & rhythm Abdomen: positive: Tenderness (Mild in the pelvis more pressure than anything else.) Rectal: positive: Other (I was not the on-call physician when our radiologist and the on-call physician declined to drain the abscess I sat and spoke with the patient, her and Dr. Justice Vaz. We had an approximately 1 hour long conversation about her disease process how it comes about what the possible treatments are. I explained that after I would perform a digital rectal examination, if I could feel the abscess with 100% surety then I could attempt a transanal drainage using a Chika. After explaining the risks and benefits the patient indicated that she wished to proceed and as I had her sign a consent form. Using Sadaf (the nurse) in the room as my collision estimator I performed a digital rectal examination which the patient tolerated well but I could not be 100% sure that I could feel the abscess and as such I deferred and recommended that the patient be transferred for interventional radiology to drain the abscess. There were no other findings on the digital rectal examination.) Skin: positive: Color nml Extremities: positive: Nml appearance Neurologic/Psychiatric: positive: Oriented x3 ABX Reporting Has patient been on IV antibiotics over the past 48 hours?: Yes Impression/Plan - Problem List Problem List: Again see further up on this on the physical examination portion of this note for the recommendations but to summarize I recommend that the patient be sent to an interventional radiologist in a tertiary care hospital for drainage of this abscess. Following drainage she should be able to be taking care of other here in the hospital or at home. Between conversation, explanation, coordination of her care, performance of the digital rectal examination, and completion of the requisite paperwork this took over 1 hour and 20 minutes
[2018-04-20 13:21] LABS: HEPATITIS A AB TOTAL(IMMUNITY) NON-REACTIVE (NON-REACTIVE); HEPATITIS A IGM NON-REACTIVE (NON-REACTIVE); HEPATITIS B CORE AB TOTAL NON-REACTIVE (NON-REACTIVE); HEPATITIS B CORE ANTIBODY IGM NON-REACTIVE (NON-REACTIVE); HEPATITIS B SURFACE ANTIGEN NON-REACTIVE (NON-REACTIVE); HEPATITIS C ANTIBODY NON-REACTIVE (NON-REACTIVE)
--- NOTE | 2018-04-20 21:11 | DISCHARGE SUMMARY ---
Physician: Hanna Meadows MD DATE OF ADMISSION: 04/15/2018 DATE OF DISCHARGE: 04/19/2018 DISCHARGE/TRANSFER SUMMARY HISTORY OF PRESENT ILLNESS: This is a 77-year-old white female with a history of hypothyroidism, hypertension and scoliosis with prior back surgery. The patient presented after several days of nausea and vomiting and then diarrhea with marked weakness. She thought she had eaten some bad food at a restaurant. The pain was severely colicky and also was localized more to the right upper quadrant initially. The patient came to the emergency room and was felt to be dehydrated, creatinine was mildly elevated. She had an elevated white blood count of 18 with a significant left shift of 38% and evaluation in the emergency room was with a CT of the abdomen without contrast. This showed that the patient had a large amount of fluid in her bladder and a large amount of stool. She received an enema in the emergency room and a catheter drainage of her urinary bladder. She spiked a temperature in the emergency room and was admitted for management of the above. HOSPITAL COURSE AND DISCHARGE DIAGNOSES 1. Pelvic abscess. The patient's management was that of starting empiric antibiotics with IV Zosyn and p.o. Flagyl. Her diet was slowly advanced to a BRAT diet. She had a slow improvement in her white blood count, but every day continued to feel weak, had abdominal pain in various locations and had persistent watery diarrhea. She was seen by nursing education consultant initially in the emergency room and felt to not have a surgical abdomen. She was seen in followup several days later by a different covering Surgeon who re-evaluated and advised repeat imaging. She did undergo repeat CT imaging using oral Gastrografin and IV contrast. This repeat CT scan showed that she had a pelvic abscess measuring 8.4 x 10.7 x 11.5 cm and another measuring 4.6 x 5.3 cm. It was felt to be caused by a perforated sigmoid diverticulosis that was also seen. There was mass effect on the sigmoid colon pushing it posteriorly and mass effect on the uterus pushing it anteriorly. At this time, her bladder was being decompressed with a Faith catheter in place. The management then consisted of a request for Interventional Radiology to drain the abscess, but the equipment here was not adequate. The initial Surgeon then saw her in reconsultation for potential of drainage via the rectum and anus; however, he felt the approach was not possible. She was advised to be transferred to higher level of care. The patient was very kindly accepted in transfer to [facility] for further management by the Hospitalist team. 2. Perforated sigmoid diverticulum. Patient did not have a prior history of diverticulosis. When the CT scan revealed the findings as above, her antibiotics of IV Zosyn and p.o. Flagyl were changed to IV Flagyl with IV Zosyn. The patient continued to have watery diarrhea on the day of transfer. There was mild abdominal pain in the right mid and lateral abdomen and in the left lower quadrant of the abdomen, but without guarding or rebound. 3. [address]. The [address] scan with contrast also showed mild bilateral hydronephrosis and dilated extrarenal pelvis with hydroureter. This was mildly increased compared to the prior exam and felt to be potentially caused by the pelvic abscess causing a mass effect on the ureters. Her Faith was continued and she was transferred with the Faith in place for bladder drainage and decompression. 4. Neurogenic bladder. Because of the patient's significant history of scoliosis and prior rods placed, her gait and strength and sensation were evaluated by physical therapy as well as by the Hospitalist. Her motor strength was normal, but her sensation was abnormal from L2 to S5. The patient did report that while in the hospital, she had no urge to urinate which was not normal for her. It was at this point that she had the Faith placed. 5. Aortic stenosis. In workup of an elevated white blood count with left shift and fever, blood cultures were drawn. These were negative throughout her course. An Echo was done to rule out endocarditis because she had a systolic murmur heard at rest and reported recent dental surgery. The Echo results showed normal LV size and systolic function and mild aortic stenosis. 6. Hypertension. The patient's blood pressure was controlled in the 130/50 range without the use of her lisinopril. This suggested that she was volume depleted during her course here. She remained on IV fluids from admission, they were increased as required. 7. Glaucoma. The patient's eyedrops were continued. 8. Possible cold sore of the lip. On the day of transfer, the patient noticed a pimple-like appearance of the left upper lip. She was given 1 dose of Valtrex before transfer. LABORATORIES AND IMAGING: Reviewed and summarized above. ALLERGIES 1. OXYCODONE. 2. BRIMONIDINE. 3. LISINOPRIL. 4. TIMOLOL. MEDICATIONS AT THE TIME OF TRANSFER 1. Zosyn 3.375 mg IV daily. 2. Morphine p.r.n. pain. 3. Tylenol p.r.n. fever. 4. Lipitor 20 mg q.p.m. 5. Glaucoma eyedrops, the patient's own medication. 6. Zofran p.r.n. nausea. 7. Lomotil 1 tab q.i.d. p.r.n. 8. Florastor 250 mg b.i.d. 9. Potassium 20 mEq b.i.d. 10. Flagyl 500 mg IV q.8h. 11. Protonix 40 mg IV b.i.d. 12. Magnesium 400 mg p.o. b.i.d. 13. Valtrex 1 dose 500 mg. CONDITION AT DISCHARGE: Guarded. PHYSICAL EXAMINATION AT DISCHARGE VITAL SIGNS: Blood pressure 130/40, heart rate 86 and sinus rhythm, temperature 37.1, room air saturation 100%. HEENT: Small, red, raised papule of the left upper lip without streaking or pain. Her oral mucosa was moist. There were no sores visible (after a dental implant done 6 weeks previously). NECK: Without JVD or carotid bruits. CHEST: Clear. HEART: Heart sounds normal S1, S2, a 1 to 2/6 systolic murmur heard at the base and lower left sternal border. No RV heave or gallop. ABDOMEN: Soft. No guarding or rebound. Tender to moderate touch in the right upper quadrant and left lower quadrant. RECTAL: The rectum had normal tone and no stool in the vault. She was tender to touch on finger manipulation by the surgeon on the day of discharge. EXTREMITIES: Legs without clubbing, cyanosis, or edema. NEUROLOGIC: Abnormal exam on sensory done several days previously, but otherwise intact. FOLLOWUP: This will be determined after her stay at [facility]. CODE STATUS: FULL CODE. Time required to complete this entire discharge, arrangements for transfer, chart review, dictation: Sixty minutes. cc: Na Tenorio PA-C TD: 04/20/2018 16:38 [facility]
== END 2018-04-19 22:00 | disposition short-term general hospital (02) | DRG 392 ==
LOC: ED 08:13 → MS2 18:41
PROVIDERS: ADMIT Nurse Practitioner; ATTEND Internal Medicine
DX: D72.825 Bandemia (principal); R10.30 Lower abdominal pain, unspecified; R50.9 Fever, unspecified; K57.20 Diverticulitis of large intestine with perforation and abscess without bleeding; N13.30 Unspecified hydronephrosis; N31.9 Neuromuscular dysfunction of bladder, unspecified; E86.0 Dehydration; I35.0 Nonrheumatic aortic (valve) stenosis; I10 Essential (primary) hypertension; H40.9 Unspecified glaucoma; E03.9 Hypothyroidism, unspecified; M41.9 Scoliosis, unspecified; E78.5 Hyperlipidemia, unspecified; B00.1 Herpesviral vesicular dermatitis; Z79.899 Other long term (current) drug therapy
CPT/HCPCS: 36415; 51702; 74176; 74177; 76705; 80053; 80074; 81001; 81003; 82270; 83605; 83690; 83735; 85025; 86704; 86708; 86803; 87040; 87045; 87046; 87086; 87177; 87209; 87493; 93306; 96365; 99284; 99285

== ENCOUNTER 2018-04-29 10:15 | Outpatient (CLI) | payer MEDICARE, OTHER ==
[2018-04-29 13:22] LABS: BASOPHILS % (AUTO) 0.4 %; EOSINOPHILS # (AUTO) 0.1 10^3/uL (0.0-0.7); EOSINOPHILS % (AUTO) 0.7 %; LYMPHOCYTES # (AUTO) 0.8 10^3/uL (1.5-3.5); LYMPHOCYTES % (AUTO) 9.1 %; MEAN CORPUSCULAR HEMOGLOBIN 31.8 pg (27.0-31.0); MEAN CORPUSCULAR HGB CONC 33.5 g/dL (32.0-36.0); MEAN CORPUSCULAR VOLUME 94.9 fL (81.0-99.0); MEAN PLATELET VOLUME 8.4 fL (7.9-10.8); MONOCYTES # (AUTO) 0.8 10^3/uL (0.0-1.0); MONOCYTES % (AUTO) 8.6 %; NEUTROPHILS # (AUTO) 7.2 10^3/uL (1.5-6.6); NEUTROPHILS % (AUTO) 81.2 %; PLT - PLATELET COUNT 401 10^3/uL (130-450); RED BLOOD COUNT 3.16 10^6/uL (4.20-5.40); RED CELL DISTRIBUTION WIDTH 14.4 % (12.0-15.0); WHITE BLOOD COUNT 8.8 x10^3/uL (4.8-10.8)
[2018-04-29 13:46] LABS: ALBUMIN 2.6 g/dL (3.2-5.5); ALBUMIN/GLOBULIN RATIO 0.6 (1.0-2.2); BILIRUBIN,TOTAL 0.7 mg/dL (0.2-1.0); CREATININE 0.8 mg/dL (0.4-1.0); TOTAL PROTEIN 6.8 g/dL (6.7-8.2)
== END 2018-04-29 10:16 | disposition home or self-care (01) ==
LOC: LAB.WCP 10:15
PROVIDERS: ATTEND Physician Assistant Medical
DX: K57.20 Diverticulitis of large intestine with perforation and abscess without bleeding (principal); E83.42 Hypomagnesemia
CPT/HCPCS: 36415; 80053; 83735; 85025

== ENCOUNTER 2018-05-18 08:42 | Outpatient (CLI) | payer MEDICARE, OTHER ==
[2018-05-18 12:13] LABS: BASOPHILS % (AUTO) 0.6 %; EOSINOPHILS # (AUTO) 0.3 10^3/uL (0.0-0.7); EOSINOPHILS % (AUTO) 4.4 %; LYMPHOCYTES # (AUTO) 1.1 10^3/uL (1.5-3.5); LYMPHOCYTES % (AUTO) 17.4 %; MEAN CORPUSCULAR HEMOGLOBIN 31.5 pg (27.0-31.0); MEAN CORPUSCULAR HGB CONC 33.8 g/dL (32.0-36.0); MEAN CORPUSCULAR VOLUME 93.2 fL (81.0-99.0); MEAN PLATELET VOLUME 7.2 fL (7.9-10.8); MONOCYTES # (AUTO) 0.5 10^3/uL (0.0-1.0); MONOCYTES % (AUTO) 7.6 %; NEUTROPHILS # (AUTO) 4.6 10^3/uL (1.5-6.6); PLT - PLATELET COUNT 479 10^3/uL (130-450); RED BLOOD COUNT 3.17 10^6/uL (4.20-5.40); RED CELL DISTRIBUTION WIDTH 15.2 % (12.0-15.0); WHITE BLOOD COUNT 6.5 x10^3/uL (4.8-10.8)
[2018-05-18 12:32] LABS: ALBUMIN 3.2 g/dL (3.2-5.5); ALBUMIN/GLOBULIN RATIO 0.9 (1.0-2.2); BILIRUBIN,TOTAL 0.2 mg/dL (0.2-1.0); CALCIUM 9.4 mg/dL (8.5-10.3); CREATININE 0.8 mg/dL (0.4-1.0); TOTAL PROTEIN 6.8 g/dL (6.7-8.2)
== END 2018-05-18 08:43 ==
LOC: LAB.WCP 08:42
PROVIDERS: ATTEND Physician Assistant Medical
DX: K57.20 Diverticulitis of large intestine with perforation and abscess without bleeding (principal)
CPT/HCPCS: 36415; 80053; 85025

== ENCOUNTER 2018-06-07 13:30 | Outpatient (CLI) | payer MEDICARE, OTHER | END 2018-06-07 13:31 | disposition home or self-care (01) | LOC: DI 13:30 | PROVIDERS: ATTEND Physician Assistant Medical | DX: Z12.31 Encounter for screening mammogram for malignant neoplasm of breast (principal) | CPT/HCPCS: 77067 ==

== ENCOUNTER 2018-06-18 08:12 | Outpatient (CLI) | payer MEDICARE, OTHER ==
[2018-06-18 12:44] LABS: BASOPHILS % (AUTO) 0.6 %; EOSINOPHILS # (AUTO) 0.2 10^3/uL (0.0-0.7); HGB - HEMOGLOBIN 10.6 g/dL (12.0-16.0); LYMPHOCYTES # (AUTO) 1.3 10^3/uL (1.5-3.5); LYMPHOCYTES % (AUTO) 16.1 %; MEAN CORPUSCULAR HEMOGLOBIN 31.7 pg (27.0-31.0); MEAN CORPUSCULAR HGB CONC 33.4 g/dL (32.0-36.0); MEAN CORPUSCULAR VOLUME 94.9 fL (81.0-99.0); MEAN PLATELET VOLUME 7.8 fL (7.9-10.8); MONOCYTES # (AUTO) 0.6 10^3/uL (0.0-1.0); MONOCYTES % (AUTO) 6.9 %; NEUTROPHILS # (AUTO) 6.1 10^3/uL (1.5-6.6); NEUTROPHILS % (AUTO) 74.4 %; PLT - PLATELET COUNT 323 10^3/uL (130-450); RED BLOOD COUNT 3.33 10^6/uL (4.20-5.40); RED CELL DISTRIBUTION WIDTH 16.3 % (12.0-15.0); WHITE BLOOD COUNT 8.1 x10^3/uL (4.8-10.8)
== END 2018-06-18 08:13 | disposition home or self-care (01) ==
LOC: LAB.WCP 08:12
PROVIDERS: ATTEND Physician Assistant Medical
DX: K57.20 Diverticulitis of large intestine with perforation and abscess without bleeding (principal); I10 Essential (primary) hypertension
CPT/HCPCS: 36415; 82728; 83540; 84466; 85025

== ENCOUNTER 2018-06-21 11:52 | Day surgery (SDC) | payer MEDICARE, OTHER ==
[2018-06-21] MEDS ORDERED: LACTATED RINGERS 1,000 ML IV ONE (11:57)
[2018-06-21] MEDS ORDERED: fentaNYL 250 MCG/5 ML VIAL IVP ONE (14:59)
[2018-06-21] MEDS ORDERED: MIDAZOLAM 2 MG/2 ML VIAL IVP ONE (14:59)
[2018-06-21 15:55] VITALS: BP 151/58
== END 2018-06-21 11:53 | disposition home or self-care (01) ==
LOC: SDS 11:52
PROVIDERS: ATTEND Surgery
PROC: 0DJD8ZZ Inspection of Lower Intestinal Tract, Via Natural or Artificial Opening Endoscopic (ICD-10-PCS; principal; 2018-06-21 13:15)
DX: K57.30 Diverticulosis of large intestine without perforation or abscess without bleeding (principal); K64.8 Other hemorrhoids; I10 Essential (primary) hypertension; K21.9 Gastro-esophageal reflux disease without esophagitis; E78.00 Pure hypercholesterolemia, unspecified
CPT/HCPCS: 45378; J3010; J7120

== ENCOUNTER 2018-06-22 22:48 | Outpatient (CLI) | payer MEDICARE, OTHER ==
[2018-06-22 15:13] LABS: % IRON SATURATION 29 % (20-50); IRON 68 ug/dL (28-170); TOTAL IRON BINDING CAPACITY 235 ug/dL (250-450); TRANSFERRIN 168 mg/dL (192-382)
== END 2018-06-22 22:49 | disposition home or self-care (01) ==
LOC: LAB.WCP 22:48
PROVIDERS: ATTEND Physician Assistant Medical
DX: K57.20 Diverticulitis of large intestine with perforation and abscess without bleeding (principal)
CPT/HCPCS: 36415; 82728; 83540; 84466

== ENCOUNTER 2018-08-27 10:14 | Outpatient (CLI) | payer MEDICARE, OTHER ==
[2018-08-27 12:56] LABS: EOSINOPHILS # (AUTO) 0.2 10^3/uL (0.0-0.7); EOSINOPHILS % (AUTO) 3.4 %; HGB - HEMOGLOBIN 12.7 g/dL (12.0-16.0); LYMPHOCYTES # (AUTO) 1.2 10^3/uL (1.5-3.5); MEAN CORPUSCULAR HEMOGLOBIN 32.3 pg (27.0-31.0); MEAN CORPUSCULAR HGB CONC 33.2 g/dL (32.0-36.0); MEAN CORPUSCULAR VOLUME 97.1 fL (81.0-99.0); MONOCYTES # (AUTO) 0.4 10^3/uL (0.0-1.0); MONOCYTES % (AUTO) 8.9 %; NEUTROPHILS # (AUTO) 2.7 10^3/uL (1.5-6.6); NEUTROPHILS % (AUTO) 59.7 %; PLT - PLATELET COUNT 217 10^3/uL (130-450); RED BLOOD COUNT 3.95 10^6/uL (4.20-5.40); RED CELL DISTRIBUTION WIDTH 13.7 % (12.0-15.0); WHITE BLOOD COUNT 4.6 x10^3/uL (4.8-10.8)
[2018-08-27 13:54] LABS: ALBUMIN/GLOBULIN RATIO 1.3 (1.0-2.2); ALKALINE PHOSPHATASE 60 IU/L (42-121); ALT ALANINE AMINOTRANSFERASE 16 IU/L (10-60); AST ASPARTATE AMINOTRANSFERASE 21 IU/L (10-42); BILIRUBIN,TOTAL 0.6 mg/dL (0.2-1.0); BUN - BLOOD UREA NITROGEN 24 mg/dL (6-20); CALCIUM 9.1 mg/dL (8.5-10.3); CARBON DIOXIDE - CO2 23 mmol/L (21-32); CHLORIDE 107 mmol/L (101-111); CHOL/HDL RATIO 3.4 (<4.4); CHOLESTEROL 189 mg/dL; CREATININE 0.8 mg/dL (0.4-1.0); GFR - MDRD 69 (>89); GLUCOSE 78 mg/dL (70-100); HDL CHOLESTEROL 56 mg/dL; LDL CHOLESTEROL,CALCULATED 112 mg/dL; SODIUM 138 mmol/L (135-145); TOTAL PROTEIN 7.1 g/dL (6.7-8.2); VLDL CHOLESTEROL 21 mg/dL
== END 2018-08-27 10:15 | disposition home or self-care (01) ==
LOC: LAB.WCP 10:14
PROVIDERS: ATTEND Physician Assistant Medical
DX: E78.5 Hyperlipidemia, unspecified (principal); E83.42 Hypomagnesemia; D50.9 Iron deficiency anemia, unspecified
CPT/HCPCS: 36415; 80053; 80061; 82728; 83721; 83735; 85025

== ENCOUNTER 2019-02-01 08:10 | Outpatient (CLI) | payer MEDICARE, OTHER ==
[2019-02-01 12:26] LABS: BASOPHILS % (AUTO) 0.7 %; EOSINOPHILS # (AUTO) 0.3 10^3/uL (0.0-0.7); EOSINOPHILS % (AUTO) 5.2 %; LYMPHOCYTES % (AUTO) 37.5 %; MEAN CORPUSCULAR HEMOGLOBIN 31.6 pg (27.0-31.0); MEAN CORPUSCULAR HGB CONC 32.6 g/dL (32.0-36.0); MEAN CORPUSCULAR VOLUME 96.9 fL (81.0-99.0); MONOCYTES # (AUTO) 0.5 10^3/uL (0.0-1.0); NEUTROPHILS # (AUTO) 2.6 10^3/uL (1.5-6.6); NEUTROPHILS % (AUTO) 47.6 %; PLT - PLATELET COUNT 275 10^3/uL (130-450); RED BLOOD COUNT 4.12 10^6/uL (4.20-5.40); RED CELL DISTRIBUTION WIDTH 13.6 % (12.0-15.0); WHITE BLOOD COUNT 5.4 x10^3/uL (4.8-10.8)
[2019-02-01 13:14] LABS: ALBUMIN/GLOBULIN RATIO 1.4 (1.0-2.2); ALKALINE PHOSPHATASE 62 IU/L (42-121); ALT ALANINE AMINOTRANSFERASE 21 IU/L (10-60); AST ASPARTATE AMINOTRANSFERASE 23 IU/L (10-42); BILIRUBIN,TOTAL 0.7 mg/dL (0.2-1.0); BUN - BLOOD UREA NITROGEN 24 mg/dL (6-20); CALCIUM 9.3 mg/dL (8.5-10.3); CARBON DIOXIDE - CO2 26 mmol/L (21-32); CHLORIDE 104 mmol/L (101-111); CHOL/HDL RATIO 3.6 (<4.4); CHOLESTEROL 206 mg/dL; GFR - MDRD 53 (>89); GLUCOSE 91 mg/dL (70-100); HDL CHOLESTEROL 58 mg/dL; LDL CHOLESTEROL,CALCULATED 124 mg/dL; LDL/HDL RATIO 2.1 (<4.4); SODIUM 139 mmol/L (135-145); TOTAL PROTEIN 6.9 g/dL (6.7-8.2); VLDL CHOLESTEROL 24 mg/dL
== END 2019-02-01 08:11 | disposition home or self-care (01) ==
LOC: LAB.WCP 08:10
PROVIDERS: ATTEND Physician Assistant Medical
DX: E78.5 Hyperlipidemia, unspecified (principal); D50.9 Iron deficiency anemia, unspecified
CPT/HCPCS: 36415; 80053; 80061; 83721; 85025

== ENCOUNTER 2019-02-03 17:53 | Emergency (ER) | payer MEDICARE, OTHER ==
[2019-02-03 18:24] LABS: BASOPHILS % (AUTO) 0.3 %; EOSINOPHILS # (AUTO) 0.1 10^3/uL (0.0-0.7); EOSINOPHILS % (AUTO) 0.8 %; HGB - HEMOGLOBIN 13.8 g/dL (12.0-16.0); LYMPHOCYTES % (AUTO) 8.8 %; MEAN CORPUSCULAR HEMOGLOBIN 31.5 pg (27.0-31.0); MEAN CORPUSCULAR HGB CONC 32.8 g/dL (32.0-36.0); MEAN CORPUSCULAR VOLUME 95.9 fL (81.0-99.0); MEAN PLATELET VOLUME 7.3 fL (7.9-10.8); MONOCYTES # (AUTO) 0.5 10^3/uL (0.0-1.0); MONOCYTES % (AUTO) 4.4 %; NEUTROPHILS # (AUTO) 10.3 10^3/uL (1.5-6.6); NEUTROPHILS % (AUTO) 85.7 %; PLT - PLATELET COUNT 292 10^3/uL (130-450); RED BLOOD COUNT 4.38 10^6/uL (4.20-5.40); RED CELL DISTRIBUTION WIDTH 13.3 % (12.0-15.0)
[2019-02-03 18:32] LABS: ALBUMIN 4.5 g/dL (3.2-5.5); ALBUMIN/GLOBULIN RATIO 1.4 (1.0-2.2); BILIRUBIN,TOTAL 0.9 mg/dL (0.2-1.0); CALCIUM 10.3 mg/dL (8.5-10.3); CREATININE 0.9 mg/dL (0.4-1.0); TOTAL PROTEIN 7.8 g/dL (6.7-8.2)
[2019-02-03 19:29] LABS: BILIRUBIN,URINE NEGATIVE (NEGATIVE); GLUCOSE, URINE (UA) NEGATIVE (NEGATIVE); KETONES,URINE (UA) 15 mg/dL (NEGATIVE); LEUKOCYTE ESTERASE, URINE NEGATIVE (NEGATIVE); NITRITE,URINE NEGATIVE (NEGATIVE); OCCULT BLOOD,URINE NEGATIVE (NEGATIVE); PROTEIN,URINE NEGATIVE (NEGATIVE); UROBILINOGEN,URINE 0.2 (NORMAL) E.U./dL (NORMAL)
[2019-02-03 19:30] LABS: CLARITY,URINE CLEAR (CLEAR)
--- NOTE | 2019-02-03 19:52 | ED Physician Documentation ---
PD HPI ABD PAIN - Stated complaint Stated Complaint: NAUSEA - Chief complaint Chief Complaint: Abd Pain - History obtained from History obtained from: Patient - History of Present Illness Timing - onset: Today Timing - duration: Days (1) Timing - details: Gradual onset, Still present Quality: Cramping, Aching, Pain Location: Suprapubic, LLQ Improved by: No: Eating Worsened by: Palpation. No: Eating Associated symptoms: No: Fever, Nausea, Vomiting, Diarrhea, Constipation Similar symptoms before: Diagnosis (diverticulitis) Review of Systems Constitutional: denies: Fever Nose: denies: Rhinorrhea / runny nose, Congestion Throat: denies: Sore throat Cardiac: denies: Chest pain / pressure Respiratory: denies: Cough GI: reports: Abdominal Pain, Nausea. denies: Abdominal Swelling, Vomiting, Constipation, Diarrhea : denies: Dysuria, Frequency Skin: denies: Rash, Lesions PD PAST MEDICAL HISTORY - Past Medical History Cardiovascular: Hypertension, High cholesterol Respiratory: None Endocrine/Autoimmune: None GI: Diverticulitis : None HEENT: Glaucoma Psych: None Musculoskeletal: Scoliosis Derm: None - Past Surgical History Past Surgical History: Yes General: Colonoscopy /INCLUSION INTERNSHIP: Other Neuro: Other HEENT: Cataracts, Tonsil/Adenoidectomy - Present Medications Home Medications: Ambulatory Orders Medication Instructions Recorded Confirmed Atorvastatin [Lipitor] 20 mg PO QPM 02/15/16 06/21/18 Losartan [Cozaar] 100 mg PO DAILY 02/15/16 06/21/18 Betaxolol 0.25% Ophth Drops 1 drops EACHEYE BID 02/18/16 06/21/18 [Betoptic S 0.25% Ophth Drops] Acetaminophen [Tylenol Arthritis] 650 tab PO DAILY 06/18/18 06/18/18 Aspirin 1 tab PO DAILY 06/18/18 06/18/18 Amox/Clav 875/125 [Augmentin] 1 each PO Q12H #20 tablet 02/03/19 Hydrocodone/Acetaminophen [Mereta 1 each PO Q6H PRN #12 tablet 02/03/19 5-325 Tablet] Naproxen 375 mg PO BID #20 tablet 02/03/19 Ondansetron Odt [Zofran] 4 mg TL Q6H PRN #10 tablet 02/03/19 - Allergies Allergies/Adverse Reactions: Allergies Allergy/AdvReac Type Severity Reaction Status Date / Time oxycodone HCl * Allergy Hallucinati Verified 04/15/18 08:22 [From OxyContin] ons brimonidine tartrate * AdvReac Unknown Verified 04/15/18 08:22 [From Alphagan P] lisinopril AdvReac Unknown Verified 04/15/18 08:22 timolol [Timolol] AdvReac Unknown Verified 02/03/19 18:00 - Social History Does the pt smoke?: No Smoking Status: Never smoker Does the pt drink ETOH?: Yes Does the pt have substance abuse?: No - Immunizations Immunizations are current?: Yes - POLST Patient has POLST: No POLST Status: Full Code PD ED PE NORMAL - Vitals Vital signs reviewed: Yes - General General: Alert and oriented X 3, No acute distress, Well developed/nourished - HEENT HEENT: Pharynx benign - Neck Neck: Supple, no meningeal sign, No adenopathy - Cardiac Cardiac: RRR, No murmur - Respiratory Respiratory: Clear bilaterally - Abdomen Abdomen: Normal bowel sounds, Soft, Non distended, No organomegaly, Other (mild tenderness without guarding nor percussion tenderness in LLQ and suprapubic area. ) - Rectal Rectal: Deferred - Back Back: No CVA TTP - Derm Derm: Normal color, Warm and dry Results - Vitals Vitals: Vital Signs - 24 hr 02/03/19 02/03/19 17:57 20:19 Temperature 36.9 C 37.1 C Heart Rate 94 78 Respiratory 18 16 Rate Blood Pressure 166/73 H 153/69 H O2 Saturation 99 100 Oxygen O2 Source Room air - Labs Labs: Laboratory Tests 02/03/19 02/03/19 02/03/19 18:15 18:15 19:15 WBC 12.0 H RBC 4.38 Hgb 13.8 Hct 42.0 MCV 95.9 MCH 31.5 H MCHC 32.8 RDW 13.3 Plt Count 292 MPV 7.3 L Neut # (Auto) 10.3 H Lymph # (Auto) 1.0 L Donley # (Auto) 0.5 Eos # (Auto) 0.1 Baso # (Auto) 0.0 Absolute Nucleated RBC 0.00 Nucleated RBC % 0.0 Sodium 140 Potassium 4.3 Chloride 103 Carbon Dioxide 26 Anion Gap 11.0 BUN 25 H Creatinine 0.9 Estimated GFR (MDRD) 60 L Glucose 116 H Calcium 10.3 Total Bilirubin 0.9 AST 25 ALT 22 Alkaline Phosphatase 68 Total Protein 7.8 Albumin 4.5 Globulin 3.3 Albumin/Globulin Ratio 1.4 Lipase 27 Urine Color YELLOW Urine Clarity CLEAR Urine pH 5.0 Ur Specific [place] 1.025 Urine Protein NEGATIVE Urine Glucose (UA) NEGATIVE Urine Ketones 15 H Urine Occult Blood NEGATIVE Urine Nitrite NEGATIVE Urine Bilirubin NEGATIVE Urine Urobilinogen 0.2 (NORMAL) Ur Leukocyte Esterase NEGATIVE Ur Microscopic Review NOT INDICATED Urine Culture Comments NOT INDICATED PD MEDICAL DECISION MAKING - ED course Complexity details: considered differential (She is having mid to lower abdominal pain consistent with prior diverticular disease. She is not having any fever. Her exam is consistent with diverticulitis without any peritoneal signs. Shared decision is to forego any imaging and treated empirically.), d/w patient Departure - Departure Disposition: 01 Home, Self Care Clinical Impression: Diverticulitis Nausea and vomiting Qualifiers: Vomiting type: unspecified Vomiting Intractability: non-intractable Qualified Code(s): R11.2 - Nausea with vomiting, unspecified Abdominal pain Qualifiers: Abdominal location: periumbilical Qualified Code(s): R10.33 - Periumbilical pain Condition: Stable Record reviewed to determine appropriate education?: Yes Instructions: ED Diverticulitis Follow-Up: Na Tenorio PA-C [Primary Care Provider] - Prescriptions: Amox/Clav 875/125 [Augmentin] 1 each PO Q12H #20 tablet Hydrocodone/Acetaminophen [Mereta 5-325 Tablet] 1 each PO Q6H PRN #12 tablet PRN Reason: Pain Naproxen 375 mg PO BID #20 tablet Ondansetron Odt [Zofran] 4 mg TL Q6H PRN #10 tablet PRN Reason: Nausea / Vomiting Comments: Stay well-hydrated. Regular diet should be okay. Use naproxen anti- inflammatory twice daily for inflammation. Augmentin antibiotic twice daily for the infection. Use ondansetron as needed for nausea. Add Tylenol or hydrocodone if needed for pain. Recheck if not improved well over the next couple of days return sooner if worsening. Discharge Date/Time: 02/03/19 20:40
[2019-02-03] MEDS ORDERED: ONDANSETRON ODT 4 MG TABLET TL STA (20:10)
[2019-02-03] MEDS ORDERED: HYDROcod/ACETAM 5/325 MG TABLET PO STA (20:10)
[2019-02-03] MEDS ORDERED: AMOX/CLAV 875 MG/125 MG TABLET PO STA (20:10)
[2019-02-03] MEDS ORDERED: ONDANSETRON ODT 4 MG Prepack 2 TL PRN (20:10)
[2019-02-03] MEDS ORDERED: NAPROXEN 250 MG TABLET PO STA (20:10)
[2019-02-03 20:20] VITALS: BP 153/69
== END 2019-02-03 20:40 | disposition home or self-care (01) ==
LOC: ED 17:53
DX: K57.32 Diverticulitis of large intestine without perforation or abscess without bleeding (principal); I10 Essential (primary) hypertension
CPT/HCPCS: 36415; 80053; 81003; 83690; 85025; 99283; 99284; A9270; Q0162; 81001; 87086

== ENCOUNTER 2019-02-08 11:54 | Outpatient (CLI) | payer MEDICARE, OTHER ==
[2019-02-08 18:46] LABS: BASOPHILS % (AUTO) 0.4 %; EOSINOPHILS # (AUTO) 0.1 10^3/uL (0.0-0.7); EOSINOPHILS % (AUTO) 1.3 %; HGB - HEMOGLOBIN 12.9 g/dL (12.0-16.0); LYMPHOCYTES # (AUTO) 0.9 10^3/uL (1.5-3.5); LYMPHOCYTES % (AUTO) 12.2 %; MEAN CORPUSCULAR HEMOGLOBIN 31.6 pg (27.0-31.0); MEAN CORPUSCULAR HGB CONC 32.5 g/dL (32.0-36.0); MEAN CORPUSCULAR VOLUME 97.3 fL (81.0-99.0); MEAN PLATELET VOLUME 8.4 fL (7.9-10.8); MONOCYTES # (AUTO) 0.5 10^3/uL (0.0-1.0); MONOCYTES % (AUTO) 6.3 %; NEUTROPHILS # (AUTO) 6.1 10^3/uL (1.5-6.6); NEUTROPHILS % (AUTO) 79.8 %; PLT - PLATELET COUNT 254 10^3/uL (130-450); RED BLOOD COUNT 4.09 10^6/uL (4.20-5.40); RED CELL DISTRIBUTION WIDTH 13.7 % (12.0-15.0); WHITE BLOOD COUNT 7.6 x10^3/uL (4.8-10.8)
== END 2019-02-08 11:55 | disposition home or self-care (01) ==
LOC: LAB.WCP 11:54
PROVIDERS: ATTEND Physician Assistant Medical
DX: K57.92 Diverticulitis of intestine, part unspecified, without perforation or abscess without bleeding (principal)
CPT/HCPCS: 36415; 85025

== ENCOUNTER 2019-06-10 15:35 | Outpatient (CLI) | payer MEDICARE, OTHER ==
--- NOTE | 2019-06-14 12:11 | Mammography Report ---
Reason: ANNUAL MAMMO Procedure Date: 06/10/2019 Accession Number: [id number] / [id number] Procedure: RASHAD - Screening Mammo w/Martin CPT Code: FULL RESULT: EXAM: Screening Mammo w/Martin DATE: 06/10/2019 4:15 PM CLINICAL HISTORY: Routine screening TECHNIQUE: (B) - Bilateral CC and MLO views were obtained. COMPARISON: 06/07/2018, 04/01/2017, 02/08/2016, 09/25/2014 PARENCHYMAL PATTERN: (A) - The breasts demonstrate scattered fibroglandular densities bilaterally. FINDINGS: No significant interval change. There are no suspicious masses, calcifications, or areas of distortion. Circumscribed nodule in the right anterior central breast is stable. Extensive vascular calcification as before. IMPRESSION: Benign findings. BI-RADS category 2. RECOMMENDATION: (ANNUAL) - Recommend routine annual screening mammography. BI-RADS CATEGORY: (2) - Benign Findings. STANDARD QUALIFYING STATEMENTS: 1. This examination was not reviewed with the aid of Computer-Aided Detection (CAD). 2. A negative or benign imaging report should not preclude biopsy if clinically suspicious findings are present. 3. Dense breasts may obscure an underlying neoplasm. 4. This examination was reviewed with the aid of 3D breast imaging (tomosynthesis).
== END 2019-06-10 15:36 | disposition home or self-care (01) ==
LOC: DI 15:35
DX: Z12.31 Encounter for screening mammogram for malignant neoplasm of breast (principal)
CPT/HCPCS: 77063; 77067

== ENCOUNTER 2019-08-31 08:00 | Outpatient (CLI) | payer MEDICARE, OTHER ==
[2019-08-31 13:39] LABS: ALBUMIN 4.1 g/dL (3.2-5.5); ALBUMIN/GLOBULIN RATIO 1.4 (1.0-2.2); ALKALINE PHOSPHATASE 54 IU/L (42-121); ALT ALANINE AMINOTRANSFERASE 20 IU/L (10-60); AST ASPARTATE AMINOTRANSFERASE 22 IU/L (10-42); BILIRUBIN,TOTAL 0.9 mg/dL (0.2-1.0); BUN - BLOOD UREA NITROGEN 17 mg/dL (6-20); CALCIUM 9.2 mg/dL (8.5-10.3); CARBON DIOXIDE - CO2 26 mmol/L (21-32); CHLORIDE 105 mmol/L (101-111); CHOL/HDL RATIO 3.1 (<4.4); CHOLESTEROL 150 mg/dL; CREATININE 0.9 mg/dL (0.4-1.0); GFR - MDRD 60 (>89); GLUCOSE 91 mg/dL (70-100); HDL CHOLESTEROL 48 mg/dL; LDL CHOLESTEROL,CALCULATED 87 mg/dL; LDL/HDL RATIO 1.8 (<4.4); SODIUM 138 mmol/L (135-145); VLDL CHOLESTEROL 15 mg/dL
== END 2019-08-31 23:59 | disposition home or self-care (01) ==
LOC: LAB.WCP 08:00
PROVIDERS: ATTEND Physician Assistant Medical
DX: E78.5 Hyperlipidemia, unspecified (principal)
CPT/HCPCS: 36415; 80053; 80061; 83721

== ENCOUNTER 2020-03-21 08:00 | Outpatient (CLI) | payer MEDICARE, OTHER ==
[2020-03-21 12:20] LABS: BASOPHILS % (AUTO) 0.9 %; EOSINOPHILS # (AUTO) 0.1 10^3/uL (0.0-0.7); EOSINOPHILS % (AUTO) 2.7 %; HGB - HEMOGLOBIN 12.7 g/dL (12.0-16.0); LYMPHOCYTES # (AUTO) 1.1 10^3/uL (1.5-3.5); LYMPHOCYTES % (AUTO) 26.1 %; MEAN CORPUSCULAR HEMOGLOBIN 33.5 pg (27.0-31.0); MEAN CORPUSCULAR HGB CONC 33.2 g/dL (32.0-36.0); MEAN CORPUSCULAR VOLUME 101.1 fL (81.0-99.0); MEAN PLATELET VOLUME 9.7 fL (7.9-10.8); MONOCYTES # (AUTO) 0.4 10^3/uL (0.0-1.0); MONOCYTES % (AUTO) 8.2 %; NEUTROPHILS # (AUTO) 2.7 10^3/uL (1.5-6.6); NEUTROPHILS % (AUTO) 61.9 %; PLT - PLATELET COUNT 249 10^3/uL (130-450); RED BLOOD COUNT 3.79 10^6/uL (4.20-5.40); RED CELL DISTRIBUTION WIDTH 12.6 % (12.0-15.0); WHITE BLOOD COUNT 4.4 x10^3/uL (4.8-10.8)
[2020-03-21 13:14] LABS: % IRON SATURATION 37 % (20-50); ALBUMIN 4.1 g/dL (3.2-5.5); ALBUMIN/GLOBULIN RATIO 1.4 (1.0-2.2); ALKALINE PHOSPHATASE 60 IU/L (42-121); ALT ALANINE AMINOTRANSFERASE 19 IU/L (10-60); AST ASPARTATE AMINOTRANSFERASE 20 IU/L (10-42); BILIRUBIN,TOTAL 0.8 mg/dL (0.2-1.0); BUN - BLOOD UREA NITROGEN 21 mg/dL (6-20); CALCIUM 9.4 mg/dL (8.5-10.3); CARBON DIOXIDE - CO2 25 mmol/L (21-32); CHLORIDE 102 mmol/L (101-111); CHOL/HDL RATIO 2.8 (<4.4); CHOLESTEROL 190 mg/dL; CREATININE 0.8 mg/dL (0.4-1.0); GLUCOSE 86 mg/dL (70-100); HDL CHOLESTEROL 68 mg/dL; IRON 99 ug/dL (28-170); LDL CHOLESTEROL,CALCULATED 102 mg/dL; LDL/HDL RATIO 1.5 (<4.4); SODIUM 134 mmol/L (135-145); TOTAL IRON BINDING CAPACITY 269 ug/dL (250-450); TRANSFERRIN 192 mg/dL (192-382); VLDL CHOLESTEROL 20 mg/dL
[2020-03-21 13:22] LABS: FERRITIN 144.3 ng/mL (11.0-306.8)
== END 2020-03-21 23:59 | disposition home or self-care (01) ==
LOC: LAB.WCP 08:00
PROVIDERS: ATTEND Physician Assistant Medical
DX: E78.5 Hyperlipidemia, unspecified (principal); D50.9 Iron deficiency anemia, unspecified; I10 Essential (primary) hypertension
CPT/HCPCS: 36415; 80053; 80061; 82728; 83540; 83721; 84443; 84466; 85025

== ENCOUNTER 2020-07-03 15:23 | Outpatient (CLI) | payer MEDICARE, OTHER ==
--- NOTE | 2020-07-04 09:56 | Mammography Report ---
BILATERAL DIGITAL SCREENING MAMMOGRAM 3D/2D: 07/03/2020 CLINICAL: Routine screening. Comparison is made to exams dated: 06/10/2019 mammogram, 06/07/2018 mammogram, 04/01/2017 mammogram, 01/26 mammogram, and 09/08/2014 mammogram - [facility]. There are scattered fibro glandular elements in both breasts. No significant masses, calcifications, or other findings are seen in either breast. There has been no significant interval change. IMPRESSION: NEGATIVE There is no mammographic evidence of malignancy. A 1 year screening mammogram is recommended. This exam was interpreted at Station ID: [id number]. NOTE: For mammograms, a report in lay terms will be sent to the patient. Approximately 15% of breast malignancies will not be visualized mammographically. In the management of a palpable breast mass, a negative mammogram must not discourage biopsy of a clinically suspicious lesion. Electronically Signed By: Robbin Singletary M.D. slc/[email or web address]:07/03/2020 16:04:40 ACR BI-RADS Category 1: Negative 3341F PARENCHYMAL PATTERN: (A) - The breast(s) demonstrate(s) scattered fibroglandular densities. BI-RADS CATEGORY: (1) - 1 RECOMMENDATION: (ANNUAL) - Recommend routine annual screening mammography. [id number] 1 year screening LATERALITY: (B)
== END 2020-07-03 15:24 | disposition home or self-care (01) ==
LOC: DI 15:23
DX: Z12.31 Encounter for screening mammogram for malignant neoplasm of breast (principal)
CPT/HCPCS: 77063; 77067

== ENCOUNTER 2020-08-29 08:00 | Outpatient (CLI) | payer MEDICARE, OTHER ==
[2020-08-29 12:58] LABS: BASOPHILS # (AUTO) 0.1 10^3/uL (0.0-0.1); BASOPHILS % (AUTO) 0.9 %; EOSINOPHILS # (AUTO) 0.2 10^3/uL (0.0-0.7); EOSINOPHILS % (AUTO) 3.6 %; HGB - HEMOGLOBIN 13.2 g/dL (12.0-16.0); LYMPHOCYTES # (AUTO) 1.1 10^3/uL (1.5-3.5); LYMPHOCYTES % (AUTO) 19.6 %; MEAN CORPUSCULAR HEMOGLOBIN 32.4 pg (27.0-31.0); MEAN CORPUSCULAR HGB CONC 32.4 g/dL (32.0-36.0); MEAN CORPUSCULAR VOLUME 100.2 fL (81.0-99.0); MEAN PLATELET VOLUME 9.6 fL (7.9-10.8); MONOCYTES # (AUTO) 0.5 10^3/uL (0.0-1.0); MONOCYTES % (AUTO) 8.2 %; NEUTROPHILS # (AUTO) 3.7 10^3/uL (1.5-6.6); NEUTROPHILS % (AUTO) 67.3 %; PLT - PLATELET COUNT 282 10^3/uL (130-450); RED BLOOD COUNT 4.07 10^6/uL (4.20-5.40); RED CELL DISTRIBUTION WIDTH 13.2 % (12.0-15.0); WHITE BLOOD COUNT 5.5 x10^3/uL (4.8-10.8)
[2020-08-29 13:30] LABS: ALBUMIN 4.2 g/dL (3.2-5.5); ALBUMIN/GLOBULIN RATIO 1.4 (1.0-2.2); ALKALINE PHOSPHATASE 56 IU/L (42-121); ALT ALANINE AMINOTRANSFERASE 18 IU/L (10-60); AST ASPARTATE AMINOTRANSFERASE 22 IU/L (10-42); BILIRUBIN,TOTAL 0.5 mg/dL (0.2-1.0); BUN - BLOOD UREA NITROGEN 25 mg/dL (6-20); CALCIUM 9.7 mg/dL (8.5-10.3); CARBON DIOXIDE - CO2 24 mmol/L (21-32); CHLORIDE 106 mmol/L (101-111); CHOL/HDL RATIO 2.9 (<4.4); CHOLESTEROL 188 mg/dL; CREATININE 0.9 mg/dL (0.4-1.0); GLUCOSE 92 mg/dL (70-100); HDL CHOLESTEROL 65 mg/dL; LDL CHOLESTEROL,CALCULATED 103 mg/dL; LDL/HDL RATIO 1.6 (<4.4); MAGNESIUM 2.2 mg/dL (1.7-2.8); SODIUM 138 mmol/L (135-145); TOTAL PROTEIN 7.1 g/dL (6.7-8.2); VLDL CHOLESTEROL 20 mg/dL
== END 2020-08-29 23:59 | disposition home or self-care (01) ==
LOC: LAB.WCP 08:00
PROVIDERS: ATTEND Physician Assistant Medical
DX: K21.9 Gastro-esophageal reflux disease without esophagitis (principal); E78.5 Hyperlipidemia, unspecified; E83.42 Hypomagnesemia
CPT/HCPCS: 36415; 80053; 80061; 83721; 83735; 85025

== ENCOUNTER 2021-02-15 08:00 | Outpatient (CLI) | payer MEDICARE, OTHER ==
[2021-02-15 12:17] LABS: ALBUMIN 4.2 g/dL (3.2-5.5); ALBUMIN/GLOBULIN RATIO 1.4 (1.0-2.2); ALKALINE PHOSPHATASE 65 IU/L (42-121); ALT ALANINE AMINOTRANSFERASE 23 IU/L (10-60); AST ASPARTATE AMINOTRANSFERASE 24 IU/L (10-42); BILIRUBIN,TOTAL 0.7 mg/dL (0.2-1.0); BUN - BLOOD UREA NITROGEN 17 mg/dL (6-20); CALCIUM 9.6 mg/dL (8.5-10.3); CARBON DIOXIDE - CO2 27 mmol/L (21-32); CHLORIDE 100 mmol/L (101-111); CHOL/HDL RATIO 2.8 (<4.4); CHOLESTEROL 185 mg/dL; CREATININE 0.8 mg/dL (0.4-1.0); GFR - MDRD 69 (>89); GLUCOSE 101 mg/dL (70-100); HDL CHOLESTEROL 66 mg/dL; LDL CHOLESTEROL,CALCULATED 96 mg/dL; LDL/HDL RATIO 1.5 (<4.4); POTASSIUM 4.1 mmol/L (3.5-5.0); SODIUM 135 mmol/L (135-145); TOTAL PROTEIN 7.1 g/dL (6.7-8.2); TRIGLYCERIDES 114 mg/dL; VLDL CHOLESTEROL 23 mg/dL
== END 2021-02-15 23:59 | disposition home or self-care (01) ==
LOC: LAB.WCP 08:00
PROVIDERS: ATTEND Physician Assistant Medical
DX: E78.5 Hyperlipidemia, unspecified (principal)
CPT/HCPCS: 36415; 80053; 80061; 83721

== ENCOUNTER 2021-07-04 11:17 | Outpatient (CLI) | payer MEDICARE, OTHER ==
--- NOTE | 2021-07-05 07:46 | Mammography Report ---
BILATERAL DIGITAL SCREENING MAMMOGRAM 3D/2D: 07/04/2021 CLINICAL: Routine screening. Comparison is made to exams dated: 07/03/2020 mammogram, 06/10/2019 mammogram, and 06/07/2018 mammogram - [facility]. There are scattered fibroglandular elements in both breasts. No significant masses, calcifications, or other findings are seen in either breast. There has been no significant interval change. IMPRESSION: NEGATIVE There is no mammographic evidence of malignancy. A 1 year screening mammogram is recommended. This exam was interpreted at Station ID: [id number]. NOTE: For mammograms, a report in lay terms will be sent to the patient. Approximately 15% of breast malignancies will not be visualized mammographically. In the management of a palpable breast mass, a negative mammogram must not discourage biopsy of a clinically suspicious lesion. Electronically Signed By: Romie Retana M.D. [email or web address]:07/04/2021 16:57:44 ACR BI-RADS Category 1: Negative 3341F PARENCHYMAL PATTERN: (A) - The breast(s) demonstrate(s) scattered fibroglandular densities. BI-RADS CATEGORY: (1) - 1 RECOMMENDATION: (ANNUAL) - Recommend routine annual screening mammography. [id number] 1 year screening LATERALITY: (B)
== END 2021-07-04 11:18 | disposition home or self-care (01) ==
LOC: DI 11:17
DX: Z12.31 Encounter for screening mammogram for malignant neoplasm of breast (principal)

== ENCOUNTER 2021-08-30 08:53 | Outpatient (CLI) | payer MEDICARE, OTHER ==
[2021-08-30 13:15] LABS: BASOPHILS # (AUTO) 0.1 10^3/uL (0.0-0.1); EOSINOPHILS # (AUTO) 0.2 10^3/uL (0.0-0.7); EOSINOPHILS % (AUTO) 4.8 %; HCT - HEMATOCRIT 38.7 % (37.0-47.0); HGB - HEMOGLOBIN 12.7 g/dL (12.0-16.0); LYMPHOCYTES # (AUTO) 1.2 10^3/uL (1.5-3.5); LYMPHOCYTES % (AUTO) 25.6 %; MEAN CORPUSCULAR HEMOGLOBIN 32.9 pg (27.0-31.0); MEAN CORPUSCULAR HGB CONC 32.8 g/dL (32.0-36.0); MEAN CORPUSCULAR VOLUME 100.3 fL (81.0-99.0); MEAN PLATELET VOLUME 9.8 fL (7.9-10.8); MONOCYTES # (AUTO) 0.5 10^3/uL (0.0-1.0); MONOCYTES % (AUTO) 10.2 %; NEUTROPHILS # (AUTO) 2.8 10^3/uL (1.5-6.6); NEUTROPHILS % (AUTO) 58.2 %; PLT - PLATELET COUNT 274 10^3/uL (130-450); RED BLOOD COUNT 3.86 10^6/uL (4.20-5.40); RED CELL DISTRIBUTION WIDTH 12.7 % (12.0-15.0); WHITE BLOOD COUNT 4.8 x10^3/uL (4.8-10.8)
[2021-08-30 14:09] LABS: ALBUMIN 4.1 g/dL (3.2-5.5); ALBUMIN/GLOBULIN RATIO 1.4 (1.0-2.2); ALKALINE PHOSPHATASE 60 IU/L (42-121); ALT ALANINE AMINOTRANSFERASE 20 IU/L (10-60); AST ASPARTATE AMINOTRANSFERASE 21 IU/L (10-42); BILIRUBIN,TOTAL 0.7 mg/dL (0.2-1.0); BUN - BLOOD UREA NITROGEN 28 mg/dL (6-20); CALCIUM 9.5 mg/dL (8.5-10.3); CARBON DIOXIDE - CO2 26 mmol/L (21-32); CHLORIDE 103 mmol/L (101-111); CHOL/HDL RATIO 3.1 (<4.4); CHOLESTEROL 201 mg/dL; CREATININE 0.8 mg/dL (0.4-1.0); GFR - MDRD 69 (>89); GLUCOSE 100 mg/dL (70-100); HDL CHOLESTEROL 65 mg/dL; LDL CHOLESTEROL,CALCULATED 116 mg/dL; LDL/HDL RATIO 1.8 (<4.4); MAGNESIUM 2.3 mg/dL (1.7-2.8); POTASSIUM 4.3 mmol/L (3.5-5.0); SODIUM 137 mmol/L (135-145); TOTAL PROTEIN 7.1 g/dL (6.7-8.2); TRIGLYCERIDES 102 mg/dL; VLDL CHOLESTEROL 20 mg/dL
== END 2021-08-30 23:59 | disposition home or self-care (01) ==
LOC: LAB.WCP 08:53
PROVIDERS: ATTEND Physician Assistant Medical
DX: E83.42 Hypomagnesemia (principal); D50.9 Iron deficiency anemia, unspecified; E78.5 Hyperlipidemia, unspecified
CPT/HCPCS: 36415; 80053; 80061; 83721; 83735; 85025

== ENCOUNTER 2022-09-01 14:07 | Outpatient (CLI) | payer MEDICARE, OTHER ==
--- NOTE | 2022-09-03 09:13 | Mammography Report ---
BILATERAL DIGITAL SCREENING MAMMOGRAM 3D/2D: 09/01/2022 CLINICAL: Routine screening. Comparison is made to exams dated: 07/04/2021 mammogram, 07/03/2020 mammogram, and 06/10/2019 mammogram - [facility]. There are scattered areas of fibroglandular density in both breasts (category b / 25%-50% glandular t issue). No significant masses, calcifications, or other findings are seen in either breast. There has been no significant interval change. IMPRESSION: NEGATIVE There is no mammographic evidence of malignancy. A 1 year screening mammogram is recommended. Based on the Tyrer Cuzick model (a risk assessment model) the patients lifetime risk is 0.4% and her 10 year risk is 0.0%. According to the ACR, ACS, and NCCN guidelines, an annual breast MRI exam merline g with mammogram is recommended if the patients lifetime risk is 20% or greater. This exam was interpreted at Station ID: [id number]. NOTE: For mammograms, a report in lay terms will be sent to the patient. Approximately 15% of breast malignancies will not be visualized mammographically. In the management of a palpable breast mass, a negative mammogram must not discourage biopsy of a clinically suspicious lesion. Electronically Signed By: Romie [email or web address]:09/02/2022 10:04:35 ACR BI-RADS Category 1: Negative 3341F PARENCHYMAL PATTERN: (A) - The breast(s) demonstrate(s) scattered fibroglandular densities. BI-RADS CATEGORY: (1) - 1 RECOMMENDATION: (ANNUAL) - Recommend routine annual screening mammography. [id number] 1 year screening LATERALITY: (B)
== END 2022-09-01 14:08 | disposition home or self-care (01) ==
LOC: DI 14:07
DX: Z12.31 Encounter for screening mammogram for malignant neoplasm of breast (principal)

== ENCOUNTER 2023-03-09 08:12 | Outpatient (CLI) | payer MEDICARE, OTHER ==
[2023-03-09 12:39] LABS: ALBUMIN 4.2 g/dL (3.2-5.5); ALBUMIN/GLOBULIN RATIO 1.3 (1.0-2.2); ALKALINE PHOSPHATASE 65 IU/L (42-121); ALT ALANINE AMINOTRANSFERASE 18 IU/L (10-60); AST ASPARTATE AMINOTRANSFERASE 21 IU/L (10-42); BILIRUBIN,TOTAL 0.7 mg/dL (0.2-1.0); BUN - BLOOD UREA NITROGEN 21 mg/dL (6-20); CALCIUM 9.6 mg/dL (8.5-10.3); CARBON DIOXIDE - CO2 27 mmol/L (21-32); CHLORIDE 109 mmol/L (101-111); CHOL/HDL RATIO 2.7 (<4.4); CHOLESTEROL 206 mg/dL; CREATININE 0.8 mg/dL (0.4-1.0); GFR - MDRD 69 (>89); GLUCOSE 94 mg/dL (70-100); HDL CHOLESTEROL 75 mg/dL; LDL CHOLESTEROL,CALCULATED 106 mg/dL; LDL/HDL RATIO 1.4 (<4.4); POTASSIUM 3.7 mmol/L (3.5-5.0); SODIUM 141 mmol/L (135-145); TOTAL PROTEIN 7.5 g/dL (6.7-8.2); TRIGLYCERIDES 125 mg/dL; VLDL CHOLESTEROL 25 mg/dL
== END 2023-03-09 08:13 | disposition home or self-care (01) ==
LOC: LAB.N 08:12
PROVIDERS: ATTEND Physician Assistant Medical
DX: E78.5 Hyperlipidemia, unspecified (principal)
CPT/HCPCS: 36415; 80053; 80061; 83721

== ENCOUNTER 2023-09-02 09:57 | Outpatient (CLI) | payer MEDICARE, OTHER ==
--- NOTE | 2023-09-03 16:42 | Mammography Report ---
BILATERAL DIGITAL SCREENING MAMMOGRAM 3D/2D: 09/02/2023 CLINICAL: Routine screening. Comparison is made to exams dated: 09/01/2022 mammogram, 07/04/2021 mammogram, 07/03/2020 mammogram, mammogram, 06/07/2018 mammogram, and 04/01/2017 mammogram - [facility]. There are scattered areas of fibroglandular density in both breasts (category b / 25%-50% glandular t issue). There are benign calcifications in both breasts. No significant masses, calcifications, or other findings are seen in either breast. There has been no significant interval change. IMPRESSION: BENIGN There is no mammographic evidence of malignancy. A 1 year screening mammogram is recommended. Based on the Tyrer Cuzick model (a risk assessment model) the patients lifetime risk is 0.2% and her 10 year risk is 0.0%. According to the ACR, ACS, and NCCN guidelines, an annual breast MRI exam merline g with mammogram is recommended if the patients lifetime risk is 20% or greater. This exam was interpreted at Station ID: [id number]. NOTE: For mammograms, a report in lay terms will be sent to the patient. Approximately 15% of breast malignancies will not be visualized mammographically. In the management of a palpable breast mass, a negative mammogram must not discourage biopsy of a clinically suspicious lesion. Electronically Signed By: Lincoln [email or web address]:09/02/2023 17:31:50 letter sent: No_Letter ACR BI-RADS Category 2: Benign Finding(s) 3342F PARENCHYMAL PATTERN: (A) - The breast(s) demonstrate(s) scattered fibroglandular densities. BI-RADS CATEGORY: (2) - 2 Mammogram [id number] 1 year screening LATERALITY: (B)
== END 2023-09-02 09:58 | disposition home or self-care (01) ==
LOC: DI 09:57
DX: Z12.31 Encounter for screening mammogram for malignant neoplasm of breast (principal); R92.323 Mammographic fibroglandular density, bilateral breasts

== ENCOUNTER 2023-09-11 08:20 | Outpatient (CLI) | payer MEDICARE, OTHER ==
[2023-09-11 12:16] LABS: BASOPHILS % (AUTO) 0.8 %; EOSINOPHILS # (AUTO) 0.4 10^3/uL (0.0-0.7); EOSINOPHILS % (AUTO) 7.6 %; HCT - HEMATOCRIT 37.9 % (37.0-47.0); HGB - HEMOGLOBIN 12.2 g/dL (12.0-16.0); LYMPHOCYTES # (AUTO) 1.8 10^3/uL (1.5-3.5); LYMPHOCYTES % (AUTO) 35.2 %; MEAN CORPUSCULAR HEMOGLOBIN 32.6 pg (27.0-31.0); MEAN CORPUSCULAR HGB CONC 32.2 g/dL (32.0-36.0); MEAN CORPUSCULAR VOLUME 101.3 fL (81.0-99.0); MEAN PLATELET VOLUME 10.1 fL (7.9-10.8); MONOCYTES # (AUTO) 0.4 10^3/uL (0.0-1.0); MONOCYTES % (AUTO) 8.4 %; NEUTROPHILS # (AUTO) 2.5 10^3/uL (1.5-6.6); NEUTROPHILS % (AUTO) 47.8 %; PLT - PLATELET COUNT 278 10^3/uL (130-450); RED BLOOD COUNT 3.74 10^6/uL (4.20-5.40); RED CELL DISTRIBUTION WIDTH 13.5 % (12.0-15.0); WHITE BLOOD COUNT 5.1 x10^3/uL (4.8-10.8)
[2023-09-11 12:43] LABS: ALBUMIN 4.3 g/dL (3.2-5.5); ALBUMIN/GLOBULIN RATIO 1.8 (1.0-2.2); ALKALINE PHOSPHATASE 64 IU/L (42-121); ALT ALANINE AMINOTRANSFERASE 18 IU/L (10-60); AST ASPARTATE AMINOTRANSFERASE 19 IU/L (10-42); BILIRUBIN,TOTAL 0.4 mg/dL (0.2-1.0); BUN - BLOOD UREA NITROGEN 24 mg/dL (6-20); CARBON DIOXIDE - CO2 26 mmol/L (21-32); CHLORIDE 108 mmol/L (101-111); CHOL/HDL RATIO 3.3 (<4.4); CHOLESTEROL 213 mg/dL; CREATININE 0.7 mg/dL (0.6-1.3); GFR - MDRD 80 (>89); GLUCOSE 97 mg/dL (74-104); HDL CHOLESTEROL 65 mg/dL; LDL CHOLESTEROL,CALCULATED 128 mg/dL; MAGNESIUM 1.8 mg/dL (1.7-2.3); POTASSIUM 3.8 mmol/L (3.5-4.5); SODIUM 140 mmol/L (135-145); TOTAL PROTEIN 6.7 g/dL (6.4-8.9); TRIGLYCERIDES 102 mg/dL (48-352); VLDL CHOLESTEROL 20 mg/dL
== END 2023-09-11 08:21 | disposition home or self-care (01) ==
LOC: LAB.N 08:20
PROVIDERS: ATTEND Physician Assistant Medical
DX: E78.5 Hyperlipidemia, unspecified (principal); E83.42 Hypomagnesemia; D50.9 Iron deficiency anemia, unspecified
CPT/HCPCS: 36415; 80053; 80061; 83721; 83735; 85025

== ENCOUNTER 2024-03-07 07:59 | Outpatient (CLI) | payer MEDICARE, OTHER ==
[2024-03-07 08:17] LABS: BASOPHILS % (AUTO) 0.6 %; EOSINOPHILS # (AUTO) 0.2 10^3/uL (0.0-0.7); EOSINOPHILS % (AUTO) 4.9 %; HCT - HEMATOCRIT 37.7 % (37.0-47.0); HGB - HEMOGLOBIN 12.3 g/dL (12.0-16.0); LYMPHOCYTES # (AUTO) 1.4 10^3/uL (1.5-3.5); LYMPHOCYTES % (AUTO) 28.8 %; MEAN CORPUSCULAR HEMOGLOBIN 33.2 pg (27.0-31.0); MEAN CORPUSCULAR HGB CONC 32.6 g/dL (32.0-36.0); MEAN CORPUSCULAR VOLUME 101.9 fL (81.0-99.0); MONOCYTES # (AUTO) 0.4 10^3/uL (0.0-1.0); NEUTROPHILS # (AUTO) 2.8 10^3/uL (1.5-6.6); NEUTROPHILS % (AUTO) 56.5 %; PLT - PLATELET COUNT 245 10^3/uL (130-450); RED CELL DISTRIBUTION WIDTH 12.8 % (12.0-15.0); WHITE BLOOD COUNT 4.9 x10^3/uL (4.8-10.8)
[2024-03-07 08:34] LABS: CHOL/HDL RATIO 3.3 (<4.4); CHOLESTEROL 194 mg/dL; HDL CHOLESTEROL 58 mg/dL; LDL CHOLESTEROL,CALCULATED 106 mg/dL; LDL/HDL RATIO 1.8 (<4.4); TRIGLYCERIDES 152 mg/dL (48-352); VLDL CHOLESTEROL 30 mg/dL
[2024-03-07 08:58] LABS: ALBUMIN 4.5 g/dL (3.2-5.5); ALBUMIN/GLOBULIN RATIO 1.8 (1.0-2.2); ALKALINE PHOSPHATASE 78 IU/L (42-121); ALT ALANINE AMINOTRANSFERASE 13 IU/L (10-60); AST ASPARTATE AMINOTRANSFERASE 15 IU/L (10-42); BILIRUBIN,TOTAL 0.6 mg/dL (0.2-1.0); BUN - BLOOD UREA NITROGEN 22 mg/dL (6-20); CALCIUM 10.3 mg/dL (8.5-10.3); CARBON DIOXIDE - CO2 28 mmol/L (21-32); CHLORIDE 107 mmol/L (101-111); CREATININE 0.7 mg/dL (0.6-1.3); GFR - MDRD 80 (>89); GLUCOSE 104 mg/dL (74-104); POTASSIUM 3.7 mmol/L (3.5-4.5); SODIUM 140 mmol/L (135-145)
== END 2024-03-07 08:00 | disposition home or self-care (01) ==
LOC: LAB 07:59
PROVIDERS: ATTEND Physician Assistant Medical
DX: E78.5 Hyperlipidemia, unspecified (principal); K14.6 Glossodynia
CPT/HCPCS: 36415; 80053; 80061; 82607; 83721; 85025